=== PATIENT | female | born 1945 | race Caucasian/White ===

== ENCOUNTER 2017-01-04 12:25 | Inpatient (IN) | payer OTHER ==
--- NOTE | 2017-01-04 13:54 | PDOC ---
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 Rebeca Regalado for worsening SOB with exertion for the past 10 days. HISTORY OF PRESENT ILLNESS: The patient states she cannot walk without feeling short of breath, which is unusual for her. She also admits that when she bends over she is SOB and has upper abdominal pain. She denies orthopnea. She denies f/c, n/v/d, cough, runny nose, CP, back pain, lower extremity swelling. The patient has been on 2 rounds of steroids and abx over the past 2 weeks with no change in her SOB. She also had a EKG done by her tripe scraper which was normal. She also informs me that her bowel movements have become much thinner in nature over the past 2 weeks. When her symptoms started, she had just been started on Nadolol for her BP. PCP is Dr. Flores Regalado [employer] Mechanic is Dr. Aguilar. Vital signs on arrival are within normal limits. REVIEW OF SYSTEMS: GENERAL/CONSTITUTIONAL: No fever/chills. No weakness. No weight change. HEAD, EYES, EARS, NOSE AND THROAT: No change in vision. No ear pain or discharge. No sore throat. CARDIOVASCULAR: +SOB with exertion. No chest pain. RESPIRATORY: No cough, wheezing, or hemoptysis. GASTROINTESTINAL: See history of present illness. GENITOURINARY: No dysuria, frequency, or change in urination. MUSCULOSKELETAL: No joint or muscle swelling or pain. No neck or back pain. SKIN: No rash or easy bruising. NEUROLOGIC: No headache, vertigo, loss of consciousness, or loss of sensation. PHYSICAL EXAM: GENERAL: The patient is awake, alert, and fully oriented, in no acute distress. She can speak in full sentences while sitting. HEAD: Normal with no signs of trauma. ENT: Pupils equal, round and reactive to light, extraocular movements intact, sclera anicteric, conjunctiva clear. Neck supple. LUNGS: Clear to auscultation bilaterally. Normal excursion. No respiratory distress or use of accessory muscles. CV: RRR, S1/S2, no MRG. Cap refill < 2 sec. ABDOMEN: Soft, non-distended, non-tender even to deep palpation, no hepatomegaly or splenomegaly, no masses. EXTREMITIES: Normal range of motion. 1+ pitting edema in right LE. NEUROLOGICAL: Normal speech, normal gait. CN II-XII grossly intact. PSYCH: Normal mood, normal affect. SKIN: Warm, dry, normal turgor, no rashes or lesions noted. Past History - Past Medical History Allergies/Adverse Reactions: Allergies Allergy/AdvReac Type Severity Reaction Status Date / Time No Known Allergies Allergy Verified 01/04/17 12:27 Home Medications: Ambulatory Orders Aspirin [Baby Aspirin] 81 mg PO DAILY #0 tab.chew 03/16/12 Levothyroxine [Synthroid -] 88 mcg PO DAILY #0 tablet 03/16/12 Simvastatin [Zocor] 40 mg PO DAILY #0 tablet 03/16/12 Diltiazem Cd [Cardizem Cd -] 120 mg PO BID 09/23/15 Nadolol [Corgard -] 40 mg PO DAILY 01/04/17 Anemia: No Asthma: No Cancer: No Cardiac Disorders: Yes (cad) CVA: No COPD: Yes CHF: No Dementia: No Diabetes: No GI Disorders: Yes (sbo) Disorders: No HTN: Yes Hypercholesterolemia: Yes Liver Disease: No Seizures: No Thyroid Disease: No - Surgical History Abdominal Surgery: Yes (abd hernia repair) Appendectomy: Yes Cardiac Surgery: Yes (triple bypass) Cholecystectomy: Yes Lung Surgery: No Neurologic Surgery: No Orthopedic Surgery: No - Immunization History Immunization Up to Date: Yes - Psycho/Social/Smoking Cessation Hx Anxiety: No Suicidal Ideation: No Smoking Status: Yes Smoking History: Former smoker Have you smoked in the past 12 months: No Number of Cigarettes Smoked Daily: 0 If you are a former smoker, when did you quit?: [place] 1992 Cigars Per Day: 10 Information on smoking cessation initiated: No Hx Alcohol Use: No Drug/Substance Use Hx: No Substance Use Type: None Hx Substance Use Treatment: No *Physical Exam - Vital Signs Last Vital Signs Temp Pulse Resp BP Pulse Ox 97.4 F L 66 24 143/90 98 01/04/17 12:27 01/04/17 12:27 01/04/17 12:27 01/04/17 12:27 01/04/17 12:27 Heart Score/ECG Review - ECG Intrepretation Comment:: Twelve-lead EKG was performed and reviewed by me. There is normal sinus rhythm with a normal rate. The axis is normal. The intervals are normal. There are no ST or T wave abnormalities. Septal infarct, age undetermined. Impression: Abnormal twelve-lead EKG ED Treatment Course - LABORATORY CBC & Chemistry Diagram: 01/04/17 14:02 01/04/17 14:02 Medical Decision Making - Medical Decision Making A/P: 71 y/o afebrile female with worsened SOB on exertion over the past 10 days. Plan is as follows: 1. labs 2. EKG 3. Chest CT 4. abd/pelvis CT Labs unremarkable. EKG ok Chest CT IMPRESSION: Interval 5mm pulmonary nodule in the right lower lobe for which a follow up CT scan of the chest in 3-6 months is needed. Moderate to marked COPD /centrilobular emphysema changes again seen. abd/pelvis CT IMPRESSION: No CT evidence of an acute process in the abdomen and pelvis. Spoke with Dr. Regalado and she wants patient admitted for continuous IV steroids. Pt made aware of the plan. First dose of IV solumedrol ordered. Dr. Aguilar consulted. *DC/Admit/Observation/Transfer Diagnosis at time of Disposition: COPD exacerbation - Discharge Dispostion Admit: Yes - Referrals Referrals: Flores Regalado [Primary Care Provider] -
[2017-01-04 14:18] LABS: BASOPHIL 1.4 % (0-2.0); EOSINOPHIL 1.6 % (0-4.5); MCH 30.4 pg (25.7-33.7); MCHC 32.7 g/dl (32.0-36.0); MEAN PLT VOLUME 10.2 fl (7.5-11.1); NEUTROPHILS 48.5 % (42.8-82.8); PLATELET COUNT 254 K/MM3 (134-434); WHITE BLOOD COUNT 13.8 K/mm3 (4.0-10.0)
[2017-01-04 14:59] LABS: ALBUMIN 3.8 g/dl (3.4-5.0); ANION GAP 9 (8-16); BILIRUBIN,TOTAL 1.2 mg/dL (0.2-1.0); CALCIUM 9.7 mg/dL (8.5-10.1); CO2 30 mmol/L (21-32); CREATININE 0.9 mg/dL (0.55-1.02); GLUCOSE,RANDOM 191 mg/dL (74-106); SGOT/AST 15 U/L (15-37); SGPT/ALT 33 U/L (12-78); TOT PROT 6.9 g/dl (6.4-8.2)
[2017-01-04 15:02] LABS: ALK PHOS 88 U/L (45-117); TROPONIN I < 0.02 ng/ml (0.00-0.05)
--- NOTE | 2017-01-04 15:59 | EKG ---
Test Reason : Blood Pressure : / mmHG Vent. Rate : 060 BPM Atrial Rate : 060 BPM P-R Int : 184 ms QRS Dur : 076 ms QT Int : 454 ms P-R-T Axes : 011 022 054 degrees QTc Int : 454 ms NORMAL SINUS RHYTHM SEPTAL INFARCT (CITED ON OR BEFORE 19-JUN-2002) ABNORMAL ECG WHEN COMPARED WITH ECG OF 23-SEP-2015 18:12, VENT. RATE HAS DECREASED BY 33 BPM Confirmed by AMANDA GONZALEZ MD ([id number]) on 01/04/2017 3:59:20 PM Referred By: Confirmed By:AMANDA GONZALEZ MD
[2017-01-04] MEDS ORDERED: methylPREDNISolone NA SUCC 40 MG/1 ML VIAL IVPB ONE (18:05)
[2017-01-04] MEDS ORDERED: methylPREDNISolone NA SUCC 40 MG/1 ML VIAL ONE (18:19)
[2017-01-04 22:38] VITALS: BMI 30.7
[2017-01-04] MEDS ORDERED: ALBUTEROL SO4 0.083% IH SOL 2.5 MG/3 ML VIAL.NEB. NEB PRN (23:11)
[2017-01-04] MEDS: methylPREDNISolone NA SUCC 40 MG/1 ML VIAL IVPB SCH (23:40)
[2017-01-05] MEDS: methylPREDNISolone NA SUCC 40 MG/1 ML VIAL IVPB SCH ×4 (02:46→21:45)
[2017-01-05] MEDS: LEVOTHYROXINE NA 88 MCG TABLET (FP) PO SCH (06:09)
[2017-01-05] MEDS: INSULIN SLIDING SCALE (NOVOLOG) 1 VIAL SQ SCH ×4 (06:09→21:51)
[2017-01-05] MEDS ORDERED: PT OWN MED DRAWER 7, Y5N ONE (09:07)
[2017-01-05 09:42] LABS: BASOPHIL 0.2 % (0-2.0); MCH 30.5 pg (25.7-33.7); MCHC 33.2 g/dl (32.0-36.0); NEUTROPHILS 78.1 % (42.8-82.8); PLATELET COUNT 280 K/MM3 (134-434); RDW 14.2 % (11.6-15.6); WHITE BLOOD COUNT 14.7 K/mm3 (4.0-10.0)
[2017-01-05] MEDS: ASPIRIN 81 MG CHEWABLE TABLETS PO SCH (09:45)
[2017-01-05] MEDS: PANTOPRAZOLE 20 MG TABLET (FP) PO SCH (09:45)
[2017-01-05] MEDS: HEPARIN NA (PORCINE) 5,000 UNITS/ML 1ML VIAL SQ SCH ×2 (09:46→21:32)
[2017-01-05] MEDS ORDERED: NADOLOL 40 MG TABLET (FP) PO SCH (10:00)
[2017-01-05 10:05] LABS: ALBUMIN 3.8 g/dl (3.4-5.0); CALCIUM 9.7 mg/dL (8.5-10.1)
[2017-01-05 10:07] LABS: BILIRUBIN,TOTAL 1.3 mg/dL (0.2-1.0)
[2017-01-05] MEDS ORDERED: INSULIN (NOVOLOG) ASPART 100 UNITS/ML 10ML VIAL ONE (11:17)
--- NOTE | 2017-01-05 13:20 | HP ---
Admitting History and Physical - Primary Care Physician PCP: Flores Regalado S - Admission Chief Complaint: SOB/[place] History of Present Illness: CHIEF COMPLAINT: 71 y/o afebrile female with PMH HTN, HLD, hypothyroidism, ACS with CABG in 1992, Whipple surgery for pseudocyst with splenectomy/parital pancreatectomy, COPD sent to ER for worsening SOB with exertion for the past 10 days. HISTORY OF PRESENT ILLNESS: The patient states she cannot walk without feeling short of breath, which is unusual for her. She also admits that when she bends over she is SOB and has upper abdominal pain. She denies orthopnea. She denies f/c, n/v/d, cough, runny nose, CP, back pain, lower extremity swelling. The patient has been on 2 rounds of steroids and abx over the past 2 weeks with no change in her SOB. She also had a EKG done by her buttermilk drier operator which was normal. She also informs me that her bowel movements have become much thinner in nature over the past 2 weeks. When her symptoms started, she had just been started on Nadolol for her BP. History Source: Patient Limitations to Obtaining History: No Limitations - Past Medical History Cardiovascular: Yes: CAD, HTN, Hyperlipdemia, [place] Pulmonary: Yes: COPD Infectious Disease: Yes: Herpes Zoster Musculoskeletal: Yes: Osteoarthritis Endocrine: Yes: Hypothyroidism - Past Surgical History Past Surgical History: Yes: CABG - Smoking History Smoking history: Former smoker Have you smoked in the past 12 months: No Aproximately how many cigarettes per day: 0 If you are a former smoker, when did you quit?: [place] 1992 - Alcohol/Substance Use Hx Alcohol Use: No History of Substance Use: reports: None - Social History Usual Living Arrangement: Yes: Alone ADL: Independent History of Recent Travel: No Home Medications - Allergies Allergies/Adverse Reactions: Allergies Allergy/AdvReac Type Severity Reaction Status Date / Time No Known Allergies Allergy Verified 01/04/17 12:27 - Home Medications Home Medications: Ambulatory Orders Aspirin [Baby Aspirin] 81 mg PO DAILY #0 tab.chew 03/16/12 Levothyroxine [Synthroid -] 88 mcg PO DAILY #0 tablet 03/16/12 Simvastatin [Zocor] 40 mg PO DAILY #0 tablet 03/16/12 Diltiazem Cd [Cardizem Cd -] 120 mg PO BID 09/23/15 Nadolol [Corgard -] 40 mg PO DAILY 01/04/17 Family Disease History - Family Disease History Family History: Unremarkable Review of Systems - Review of Systems Constitutional: denies: Chills, Fever, Lethargy Eyes: denies: Blind Spots, Double Vision HENT: denies: Difficult Swallowing, Ear Pain Neck: denies: Stiffness, Tenderness Cardiovascular: reports: Shortness of Breath. denies: Chest Pain, Palpitations Respiratory: reports: Cough (mild dry), SOB, SOB on Exertion, Wheezing. denies : Orthopnea, PND Gastrointestinal: reports: Abdominal Pain (upper abdomen from using accesory respiratory muscles). denies: Bloating, Constipation, Diarrhea, Vomiting Genitourinary: denies: Burning, Dysuria, Flank Pain Musculoskeletal: denies: Back Pain, Joint Pain Integumentary: denies: Eczema, Rash Neurological: denies: Change in LOC, Change in Speech, Confusion, Seizure, Syncope Endocrine: denies: Unexplained Weight Gain, Unexplained Weight Loss Hematology/Lymphatic: denies: Easily Bruised, Excessive Bleeding Psychiatric: denies: Altered Sleep Pattern, Anxiety, Depression Physical Examination Vital Signs: Vital Signs Temperature 98 F 01/05/17 09:00 Pulse Rate 69 01/05/17 09:00 Respiratory Rate 16 01/05/17 09:00 Blood Pressure 150/98 01/05/17 09:00 O2 Sat by Pulse Oximetry (%) 95 01/05/17 09:45 Constitutional: Yes: No Distress, Calm Eyes: Yes: Conjunctiva Clear HENT: Yes: Atraumatic Neck: Yes: Supple Cardiovascular: Yes: Regular Rate and Rhythm Respiratory: Yes: Wheezes (bilateral expiratory) Gastrointestinal: Yes: Soft. No: Distention, Tenderness Renal/: No: CVA Tenderness - Left, CVA Tenderness - Right, Hematuria Musculoskeletal: No: Joint Stiffness, Joint Swelling Extremities: No: Cold, Cool Edema: No Peripheral Pulses WNL: Yes Integumentary: No: Pressure Ulcer, Venous Stasis Changes Neurological: Yes: WNL, Alert, Oriented ...Motor Strength: WNL Psychiatric: Yes: WNL, Alert, Oriented. No: Agitated, Suicidal Ideation Labs: CBC, BMP 01/05/17 08:20 01/05/17 08:20 Imaging - Results Chest X-ray: Report Reviewed Other: Report Reviewed Assessment/Plan CHIEF COMPLAINT: 71 y/o afebrile female with PMH HTN, HLD, hypothyroidism, ACS with CABG in 1992, Whipple surgery for pseudocyst with splenectomy/parital pancreatectomy, COPD sent for worsening SOB with exertion for the past 10 days. COPD exacerbation CAP CT noted IV steroids, nebs cardiology and pulmonary evals falls PFX gastric PFX DVT pfx GLU control while on steroids d/w pt and staff
--- NOTE | 2017-01-05 15:07 | CON.PULM ---
Consult Consult Specialty:: PULMONARY Referred by:: LITA Reason for Consultation:: SOB - History of Present Illness Chief Complaint: SOB History of Present Illness: 71 y/o afebrile female with PMH HTN, HLD, hypothyroidism, ACS with CABG in 1992 , Whipple surgery for pseudocyst with splenectomy/parital pancreatectomy, COPD sent in by Dr. Rebeca Regalado for worsening SOB with exertion for the past 10 days. The patient states she cannot walk without feeling short of breath, which is unusual for her. She also admits that when she bends over she is SOB and has upper abdominal pain. She denies orthopnea. She denies f/c, n/v/d, cough, runny nose, CP, back pain, lower extremity swelling. The patient has been on 2 rounds of steroids and abx over the past 2 weeks with no change in her SOB. She also had a EKG done by her dye maker which was normal. She also informs me that her bowel movements have become much thinner in nature over the past 2 weeks. When her symptoms started, she had just been started on Nadolol for her BP. - History Source History Provided By: Patient, Medical Record Limitations to Obtaining History: No Limitations - Past Medical History MASTER CHEF: No: Alzheimer's Cardio/Vascular: Yes: CAD, HTN, Hyperlipdemia, [place] Pulmonary: Yes: COPD Gastrointestinal: No: Ascites Hepatobiliary: No: Cirrhosis Renal/: No: Renal Failure Infectious Disease: Yes: Herpes Zoster Musculoskeletal: Yes: Osteoarthritis Endocrine: Yes: Hypothyroidism - Past Surgical History Past Surgical History: Yes: CABG - Alcohol/Substance Use Hx Alcohol Use: No History of Substance Use: reports: None - Smoking History Smoking history: Former smoker Have you smoked in the past 12 months: No Aproximately how many cigarettes per day: 0 If you are a former smoker, when did you quit?: [place] 1992 - Social History ADL: Independent Place of : [facility] History of Recent Travel: No Home Medications - Allergies Allergies/Adverse Reactions: Allergies Allergy/AdvReac Type Severity Reaction Status Date / Time No Known Allergies Allergy Verified 01/04/17 12:27 - Home Medications Home Medications: Ambulatory Orders Aspirin [Baby Aspirin] 81 mg PO DAILY #0 tab.chew 03/16/12 Levothyroxine [Synthroid -] 88 mcg PO DAILY #0 tablet 03/16/12 Simvastatin [Zocor] 40 mg PO DAILY #0 tablet 03/16/12 Diltiazem Cd [Cardizem Cd -] 120 mg PO BID 09/23/15 Nadolol [Corgard -] 40 mg PO DAILY 01/04/17 Family Disease History - Family Disease History Family History: Unremarkable Review of Systems - Review of Systems Constitutional: denies: Chills, Fever Eyes: denies: Blind Spots HENT: denies: Difficult Swallowing Neck: denies: Decreased ROM Cardiovascular: denies: Chest Pain Respiratory: reports: Cough, Exercise Intolerance, SOB, SOB on Exertion, Wheezing. denies: Hemoptysis Gastrointestinal: denies: Abdominal Pain Genitourinary: denies: Burning Physical Exam Vital Sings: Vital Signs Temperature 97.5 F L 01/05/17 14:04 Pulse Rate 76 01/05/17 14:04 Respiratory Rate 16 01/05/17 14:04 Blood Pressure 135/74 01/05/17 14:04 O2 Sat by Pulse Oximetry (%) 95 01/05/17 09:45 Constitutional: Yes: Calm Eyes: Yes: EOM Intact HENT: Yes: Normocephalic Neck: Yes: Trachea Midline Cardiovascular: Yes: Regular Rate and Rhythm, S1, S2 Respiratory: Yes: Diminished Gastrointestinal: Yes: Normal Bowel Sounds, Abdomen, Obese Edema: No Integumentary: Yes: WNL Neurological: Yes: WNL Labs: CBC, BMP 01/05/17 08:20 01/05/17 08:20 REST REVIEWED Imaging - Results Chest X-ray: Image Reviewed Cat Scan: Image Reviewed EKG: Report Reviewed Problem List - Problems (1) COPD exacerbation Code(s): J44.1 - CHRONIC OBSTRUCTIVE PULMONARY DISEASE W (ACUTE) EXACERBATION (2) Coronary artery disease Code(s): I25.10 - ATHSCL HEART DISEASE OF [place] CORONARY ARTERY W/O ANG PCTRS Qualifiers: Coronary Disease-Associated Artery/Lesion type: [place] artery [place] vs. transplanted heart: [place] heart Associated angina: without angina Qualified Code(s): I25.10 - Atherosclerotic heart disease of [place] coronary artery without angina pectoris (3) Head trauma Code(s): S09.90XA - UNSPECIFIED INJURY OF HEAD, INITIAL ENCOUNTER Assessment/Plan A/E COPD/NO CT EVIDENCE TO SUPPORT CABP R/O CARDIAC COMPONENT MULTIPLE MEDICAL PROBLEMS LISTED FEV1: 1.94 DLCO73% PREDICTED SIGNIFICANT COPD ON CT CHEST BRONCHODILATORS/O2 SUPPLEMENTATION NEEDED PULMONARY REHAB AN OUTPATIENT OBSERVING OFF SYSTEMIC STEROIDS/ANTIBIOTICS WOULD REQUEST CARDIO CONSULT TO ADDRESS CORONARY ARTERY DISEASE STATUS Jaydon ADAMES MD
--- NOTE | 2017-01-05 16:48 | CON.CARD ---
Consult Consult Specialty:: Cardiology Referred by:: Flores Regalado MD Reason for Consultation:: CAD s/p [place], CABG - History of Present Illness Chief Complaint: Dyspnea History of Present Illness: 71 year old female with h/o CAD s/p [place], CABG, angina pectoris, COPD, HTN/HCVD, hyperlipidemia, aortic regurgitation, mitral regurgitation, hypothyroidism, Whipple surgery for pseudocyst with splenectomy/parital pancreatectomy presented for worsening SOB with exertion for the past 10 days. She also admits that when she bends over she is SOB, denies chest pain, palpitations, near or true syncope, palpitations, orthopnea, PND or LE edema. [place] has since improved. 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 Cardio/Vascular: Yes: CAD, HTN, Hyperlipdemia, [place] Pulmonary: Yes: COPD Gastrointestinal: No: Ascites Hepatobiliary: No: Cirrhosis Renal/: No: Renal Failure Infectious Disease: Yes: Herpes Zoster Musculoskeletal: Yes: Osteoarthritis Endocrine: Yes: Hypothyroidism - Past Surgical History Past Surgical History: Yes: CABG - Alcohol/Substance Use Hx Alcohol Use: No History of Substance Use: reports: None - Smoking History Smoking history: Former smoker Have you smoked in the past 12 months: No Aproximately how many cigarettes per day: 0 If you are a former smoker, when did you quit?: [place] 1992 - Social History ADL: Independent History of Recent Travel: No Home Medications - Allergies Allergies/Adverse Reactions: Allergies Allergy/AdvReac Type Severity Reaction Status Date / Time No Known Allergies Allergy Verified 01/04/17 12:27 - Home Medications Home Medications: Ambulatory Orders Aspirin [Baby Aspirin] 81 mg PO DAILY #0 tab.chew 03/16/12 Levothyroxine [Synthroid -] 88 mcg PO DAILY #0 tablet 03/16/12 Simvastatin [Zocor] 40 mg PO DAILY #0 tablet 03/16/12 Diltiazem Cd [Cardizem Cd -] 120 mg PO BID 09/23/15 Nadolol [Corgard -] 40 mg PO DAILY 01/04/17 Review of Systems - Review of Systems Respiratory: reports: SOB on Exertion Vital Signs: Vital Signs Temperature 97.5 F L 01/05/17 14:04 Pulse Rate 76 01/05/17 14:04 Respiratory Rate 16 01/05/17 14:04 Blood Pressure 135/74 01/05/17 14:04 O2 Sat by Pulse Oximetry (%) 95 01/05/17 09:45 Constitutional: Yes: No Distress, Calm Neck: Yes: Supple Respiratory: Yes: Regular, Diminished Gastrointestinal: Yes: Normal Bowel Sounds, Soft Cardiovascular: Yes: Regular Rate and Rhythm JVD: No Carotid Bruit: No Heart Sounds: Yes: S1, S2 Murmur: Yes: Systolic Murmur, Grade 1 Edema: No - Other Data Labs, Other Data: CBC, BMP 01/05/17 08:20 01/05/17 08:20 NSR septal infarct Ejection Fraction %: LVEF > or = 40 % Imaging - Results Cat Scan: Report Reviewed (Mod-marked centrilobular emphysema) Problem List - Problems (1) COPD exacerbation Code(s): J44.1 - CHRONIC OBSTRUCTIVE PULMONARY DISEASE W (ACUTE) EXACERBATION (2) Coronary artery disease Code(s): I25.10 - ATHSCL HEART DISEASE OF [place] CORONARY ARTERY W/O ANG PCTRS Qualifiers: Coronary Disease-Associated Artery/Lesion type: [place] artery [place] vs. transplanted heart: [place] heart Associated angina: without angina Qualified Code(s): I25.10 - Atherosclerotic heart disease of [place] coronary artery without angina pectoris (3) H/O myocardial infarction, greater than 8 weeks Code(s): I25.2 - OLD MYOCARDIAL INFARCTION (4) Hyperlipidemia Code(s): E78.5 - HYPERLIPIDEMIA, UNSPECIFIED Qualifiers: Hyperlipidemia type: pure hypercholesterolemia Qualified Code(s): E78.0 - Pure hypercholesterolemia (5) Hypertension Code(s): I10 - ESSENTIAL (PRIMARY) HYPERTENSION Qualifiers: Hypertension type: essential hypertension Qualified Code(s): I10 - Essential (primary) hypertension (6) Hypothyroidism Code(s): E03.9 - HYPOTHYROIDISM, UNSPECIFIED Qualifiers: Hypothyroidism type: unspecified Qualified Code(s): E03.9 - Hypothyroidism, unspecified (7) Status post coronary artery bypass graft Code(s): Z95.1 - PRESENCE OF AORTOCORONARY BYPASS GRAFT Assessment/Plan 1. AE COPD resolving 2. CAD s/p [place], CABG, angina pectoris 3. Hypothyroidism 4. Hyperlipidemia 5. HTN/HCVD P:1. BD, O2 to maintain saO2, check TSH, lipid panel 2. Continue ASA 81 qd, Cardizem CD 120 bid, Zocor 20 qhs, d/c Nadolol, resume Aceon 8 qd as outpatient 3. Further CV evaluation including echo and stress testing once COPD flare subsides, may be performed as outpatient 4. Thank you for consultative opportunity
[2017-01-05] MEDS: metFORMIN HCL 500 MG TABLET (FP) PO SCH (17:46)
[2017-01-05] MEDS: ATORVASTATIN CA 20 MG TABLET (FP) PO SCH (21:32)
[2017-01-06] MEDS: methylPREDNISolone NA SUCC 40 MG/1 ML VIAL IVPB SCH (02:23)
[2017-01-06] MEDS: LEVOTHYROXINE NA 88 MCG TABLET (FP) PO SCH (06:05)
[2017-01-06] MEDS: INSULIN SLIDING SCALE (NOVOLOG) 1 VIAL SQ SCH ×5 (06:05→22:10)
[2017-01-06] MEDS: metFORMIN HCL 500 MG TABLET (FP) PO SCH ×2 (06:05→16:36)
[2017-01-06 07:39] LABS: MCH 30.6 pg (25.7-33.7); MEAN CELL VOLUME 92.9 fl (80-96); MEAN PLT VOLUME 10.4 fl (7.5-11.1); PLATELET COUNT 247 K/MM3 (134-434); RDW 14.1 % (11.6-15.6); WHITE BLOOD COUNT 26.6 K/mm3 (4.0-10.0)
[2017-01-06 08:24] LABS: CHOLESTEROL 199 mg/dL (50-200); LDL CHOLESTEROL (ONLY SJRH) 118 mg/dL (5-100)
[2017-01-06 08:33] LABS: CALCIUM 9.5 mg/dL (8.5-10.1); CREATININE 0.9 mg/dL (0.55-1.02); THYROID STIMULATING HORMONE 0.48 uIU/ml (0.358-3.74)
[2017-01-06] MEDS ORDERED: PT OWN MED DRAWER 7, Y5N ONE (09:59)
[2017-01-06] MEDS ORDERED: methylPREDNISolone NA SUCC 40 MG/1 ML VIAL IVPB SCH (10:00)
[2017-01-06] MEDS: PANTOPRAZOLE 20 MG TABLET (FP) PO SCH (10:01)
[2017-01-06] MEDS: ASPIRIN 81 MG CHEWABLE TABLETS PO SCH (10:01)
[2017-01-06] MEDS: HEPARIN NA (PORCINE) 5,000 UNITS/ML 1ML VIAL SQ SCH ×2 (10:02→22:10)
[2017-01-06 10:54] LABS: PLATELET COMMENT2 NO CLOTTING DETECTED; PLATELET ESTIMATE ADEQUATE (NORMAL)
--- NOTE | 2017-01-06 11:12 | PN ---
Progress Note, Physician Chief Complaint: OOB to chair walks in the hallway, less SOB no CO; has postnasal drip d/w dr Avendano, will decide if echo and stress test to be done inH or outpt d/w pt high GLU 300' and HgA1c 8% c/w diagnosis of diabetes, she was aware of high GLU in the past and was nonc/w diet; we discussed diabetes treatment, she said she would prefer not to take any meds outpt but to be on diet and f/u labs ; agreed to insulin and metformin while in H for now - Current Medication List Current Medications: Active Medications Albuterol Sulfate (Ventolin 0.083% Nebulizer Soln -) 1 amp NEB Q4H PRN PRN Reason: SHORT OF BREATH/WHEEZING Aspirin (Asa -) 81 mg PO DAILY [facility] Last Admin: 01/06/17 10:01 Dose: 81 mg Atorvastatin Calcium (Lipitor -) 20 mg PO HS [facility] Last Admin: 01/05/17 21:32 Dose: 20 mg Diltiazem HCl (Cardizem Cd -) 120 mg PO BID [facility] Last Admin: 01/06/17 10:01 Dose: 120 mg Heparin Sodium (Porcine) (Heparin -) 5,000 unit SQ BID [facility] Last Admin: 01/06/17 10:02 Dose: 5,000 unit Insulin Aspart (Novolog Vial Sliding Scale -) 1 vial SQ ACHS QING PRN Reason: Protocol Last Admin: 01/06/17 09:10 Dose: 8 units Levothyroxine Sodium (Synthroid -) 88 mcg PO DAILY@0700 [facility] Last Admin: 01/06/17 06:05 Dose: 88 mcg Loratadine (Claritin -) 10 mg PO DAILY [facility] Metformin HCl (Glucophage -) 500 mg PO BID@0700,1630 [facility] Last Admin: 01/06/17 06:05 Dose: 500 mg Methylprednisolone Sodium Succinate (Solu-Medrol -) 40 mg IVPB Q8H-IV [facility] Last Admin: 01/06/17 10:02 Dose: 40 mg Pantoprazole Sodium (Protonix -) 20 mg PO DAILY [facility] Last Admin: 01/06/17 10:01 Dose: 20 mg Sodium Chloride ([place] -) 2 spray NS BID PRN PRN Reason: NASAL CONGESTION - Objective Vital Signs: Vital Signs Temperature 97.3 F L 01/06/17 08:15 Pulse Rate 64 02/18/17 08:15 Respiratory Rate 18 01/06/17 08:15 Blood Pressure 139/74 01/06/17 08:15 O2 Sat by Pulse Oximetry (%) 93 L 01/05/17 21:00 Constitutional: Yes: No Distress, Calm Eyes: Yes: Conjunctiva Clear HENT: Yes: Atraumatic Neck: Yes: Supple Cardiovascular: Yes: Regular Rate and Rhythm Respiratory: Yes: CTA Bilaterally Gastrointestinal: Yes: Soft. No: Distention, Tenderness Genitourinary: No: CVA Tenderness - Left, CVA Tenderness - Right Musculoskeletal: No: Joint Stiffness, Joint Swelling Extremities: No: Cold, Cool Edema: No Peripheral Pulses WNL: Yes Integumentary: No: Pressure Ulcer, Venous Stasis Changes Neurological: Yes: WNL, Alert, Oriented ...Motor Strength: WNL Psychiatric: Yes: WNL, Alert, Oriented. 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 COPD exacerbation taper IV steroids, nebs cardiology and pulmonary f/u echo & stress test per cardio check O2 sat/RA pre & post falls PFX, gastric PFX, DVT pfx GLU control while on steroids, f/u CBC and GLU d/w pt and staff
[2017-01-06] MEDS: LORATADINE 10 MG TABLET PO SCH (11:18)
[2017-01-06] MEDS ORDERED: SODIUM CHLORIDE NASAL SPRAY 44 ML BOTTLE NS PRN (12:00)
--- NOTE | 2017-01-06 13:07 | PN ---
Progress Note (short form) - Note Progress Note: PULMONARY VSS/AFEBRILE SYABLE WANTS TO LEAVE ANICTERIC CHEST DISTANT BUT CLEAR S1S2 BS+ NO EDEMA LABS/MEDS/IMAGING REVIEWED A/E COPD RESOLVED ECHO AN OUTPATIENT MEDROL CHANGED TO ORAL PREDNISONE NO OBJECTION TO DISCHARGE TODAY Jaydon DAAMES MD Problem List - Problems (1) COPD exacerbation Code(s): J44.1 - CHRONIC OBSTRUCTIVE PULMONARY DISEASE W (ACUTE) EXACERBATION (2) Coronary artery disease Code(s): I25.10 - ATHSCL HEART DISEASE OF [place] CORONARY ARTERY W/O ANG PCTRS Qualifiers: Coronary Disease-Associated Artery/Lesion type: [place] artery [place] vs. transplanted heart: [place] heart Associated angina: without angina Qualified Code(s): I25.10 - Atherosclerotic heart disease of [place] coronary artery without angina pectoris (3) Head trauma Code(s): S09.90XA - UNSPECIFIED INJURY OF HEAD, INITIAL ENCOUNTER
[2017-01-06] MEDS: predniSONE 20 MG TABLET (UD) PO SCH (13:19)
--- NOTE | 2017-01-06 14:19 | PN ---
Progress Note, Physician Chief Complaint: Events noted Intermittent dyspnea, but overall improved History of Present Illness: Patient was seen and examined. Awake and alert. Chart was reviewed Sitting in [place]. Appears better. No wheezes Denies chest pain or palpitations Less shortness of breath - Current Medication List Current Medications: Active Medications Albuterol Sulfate (Ventolin 0.083% Nebulizer Soln -) 1 amp NEB Q4H PRN PRN Reason: SHORT OF BREATH/WHEEZING Aspirin (Asa -) 81 mg PO DAILY [facility] Last Admin: 01/06/17 10:01 Dose: 81 mg Atorvastatin Calcium (Lipitor -) 20 mg PO HS [facility] Last Admin: 01/05/17 21:32 Dose: 20 mg Diltiazem HCl (Cardizem Cd -) 120 mg PO BID [facility] Last Admin: 01/06/17 10:01 Dose: 120 mg Heparin Sodium (Porcine) (Heparin -) 5,000 unit SQ BID [facility] Last Admin: 01/06/17 10:02 Dose: 5,000 unit Insulin Aspart (Novolog Vial Sliding Scale -) 1 vial SQ ACHS [facility] PRN Reason: Protocol Last Admin: 01/06/17 11:13 Dose: 4 units Levothyroxine Sodium (Synthroid -) 88 mcg PO DAILY@0700 [facility] Last Admin: 01/06/17 06:05 Dose: 88 mcg Loratadine (Claritin -) 10 mg PO DAILY [facility] Last Admin: 01/06/17 11:18 Dose: 10 mg Metformin HCl (Glucophage -) 500 mg PO BID@0700,1630 [facility] Last Admin: 01/06/17 06:05 Dose: 500 mg Pantoprazole Sodium (Protonix -) 20 mg PO DAILY [facility] Last Admin: 01/06/17 10:01 Dose: 20 mg Prednisone (Deltasone -) 20 mg PO DAILY [facility] Last Admin: 01/06/17 13:19 Dose: 20 mg Sodium Chloride ([place] Nasal [place] -) 2 spray NS BID PRN PRN Reason: NASAL CONGESTION - Objective Vital Signs: Vital Signs Temperature 97.3 F L 01/06/17 08:15 Pulse Rate 64 01/06/17 08:15 Respiratory Rate 18 01/06/17 08:15 Blood Pressure 139/74 01/06/17 08:15 O2 Sat by Pulse Oximetry (%) 93 L 01/05/17 21:00 Cardiovascular: Yes: Regular Rate and Rhythm, Murmur (Soft SM), S1, S2 Respiratory: Yes: Diminished. No: Wheezes Gastrointestinal: Yes: Normal Bowel Sounds, Soft. No: Tenderness Edema: No Additional Findings/Remarks: - Review of Systems Constitutional: denies: Chills, Fever Cardiovascular: reports: Shortness of Breath. denies: Chest Pain, Palpitations Respiratory: (+) Cough, denies: Hemoptysis, PND, Wheezing Gastrointestinal: denies: Abdominal Pain, Constipation, Diarrhea, Melena, Nausea , Rectal Bleeding, Vomiting Genitourinary: denies: Dysuria Musculoskeletal: denies: Joint Pain Neurological: denies: Dizziness, Headache, Seizure, Syncope Labs: CBC, BMP 01/06/17 06:00 01/06/17 06:00 Problem List - Problems (1) COPD exacerbation Code(s): J44.1 - CHRONIC OBSTRUCTIVE PULMONARY DISEASE W (ACUTE) EXACERBATION (2) Coronary artery disease Code(s): I25.10 - ATHSCL HEART DISEASE OF [place] CORONARY ARTERY W/O ANG PCTRS Qualifiers: Coronary Disease-Associated Artery/Lesion type: [place] artery [place] vs. transplanted heart: [place] heart Associated angina: without angina Qualified Code(s): I25.10 - Atherosclerotic heart disease of [place] coronary artery without angina pectoris (3) Hyperlipidemia Code(s): E78.5 - HYPERLIPIDEMIA, UNSPECIFIED Qualifiers: Hyperlipidemia type: pure hypercholesterolemia Qualified Code(s): E78.0 - Pure hypercholesterolemia (4) Hypertension Code(s): I10 - ESSENTIAL (PRIMARY) HYPERTENSION Qualifiers: Hypertension type: essential hypertension Qualified Code(s): I10 - Essential (primary) hypertension (5) Hypothyroidism Code(s): E03.9 - HYPOTHYROIDISM, UNSPECIFIED Qualifiers: Hypothyroidism type: unspecified Qualified Code(s): E03.9 - Hypothyroidism, unspecified (6) Status post coronary artery bypass graft Code(s): Z95.1 - PRESENCE OF AORTOCORONARY BYPASS GRAFT Assessment/Plan 1. Acute exacerbation of COPD with intermittent dyspnea 2. CAD s/p [place], CABG, angina pectoris 3. Hypothyroidism 4. Hyperlipidemia 5. HTN/HCVD PLAN: 1. Bronchodilator and O2 to maintain saO2 2. Continue ASA 81 mg QD, Cardizem CD 120 mg BID, Lipitor 20 mg QHS 3. Further CV evaluation including echocardiography and stress testing once COPD exacerbation improves. Consider Echocardiography on Sunday inpatient and if unremarkable and clinically improved, nuclear myocardial perfusion imaging can be done as outpatient. Further plans are to follow Jon Avendano MD
[2017-01-06] MEDS: ATORVASTATIN CA 20 MG TABLET (FP) PO SCH (22:10)
[2017-01-07] MEDS: LEVOTHYROXINE NA 88 MCG TABLET (FP) PO SCH (06:16)
[2017-01-07] MEDS: metFORMIN HCL 500 MG TABLET (FP) PO SCH ×2 (06:16→16:59)
[2017-01-07] MEDS: INSULIN SLIDING SCALE (NOVOLOG) 1 VIAL SQ SCH ×4 (06:17→22:34)
[2017-01-07 08:36] LABS: BASOPHIL 0.1 % (0-2.0); MCH 30.9 pg (25.7-33.7); MCHC 33.5 g/dl (32.0-36.0); MEAN CELL VOLUME 92.3 fl (80-96); MEAN PLT VOLUME 10.3 fl (7.5-11.1); NEUTROPHILS 80.9 % (42.8-82.8); PLATELET COUNT 239 K/MM3 (134-434); RDW 14.3 % (11.6-15.6); WHITE BLOOD COUNT 24.6 K/mm3 (4.0-10.0)
[2017-01-07 08:47] LABS: CALCIUM 9.3 mg/dL (8.5-10.1); CREATININE 0.8 mg/dL (0.55-1.02)
[2017-01-07] MEDS ORDERED: PT OWN MED DRAWER 7, Y5N ONE (09:14)
[2017-01-07] MEDS: ASPIRIN 81 MG CHEWABLE TABLETS PO SCH (09:16)
[2017-01-07] MEDS: HEPARIN NA (PORCINE) 5,000 UNITS/ML 1ML VIAL SQ SCH ×2 (09:17→22:33)
[2017-01-07] MEDS: LORATADINE 10 MG TABLET PO SCH (09:17)
[2017-01-07] MEDS: PANTOPRAZOLE 20 MG TABLET (FP) PO SCH (09:17)
[2017-01-07] MEDS: predniSONE 20 MG TABLET (UD) PO SCH (09:17)
--- NOTE | 2017-01-07 10:34 | PN ---
Progress Note, Physician Chief Complaint: Events noted Had epigastric discomfort, but appears to be anxiety related and probable reflux History of Present Illness: Patient was seen and examined. Awake and alert. Chart was reviewed Sitting in [place]. No wheezes. Appears anxious Denies chest pain or palpitations Denies shortness of breath - Current Medication List Current Medications: Active Medications Albuterol Sulfate (Ventolin 0.083% Nebulizer Soln -) 1 amp NEB Q4H PRN PRN Reason: SHORT OF BREATH/WHEEZING Aspirin (Asa -) 81 mg PO DAILY [facility] Last Admin: 01/07/17 09:16 Dose: 81 mg Atorvastatin Calcium (Lipitor -) 20 mg PO HS [facility] Last Admin: 01/06/17 22:10 Dose: 20 mg Diltiazem HCl (Cardizem Cd -) 120 mg PO BID [facility] Last Admin: 01/07/17 09:16 Dose: 120 mg Heparin Sodium (Porcine) (Heparin -) 5,000 unit SQ BID [facility] Last Admin: 01/07/17 09:17 Dose: 5,000 unit Insulin Aspart (Novolog Vial Sliding Scale -) 1 vial SQ ACHS [facility] PRN Reason: Protocol Last Admin: 01/07/17 06:17 Dose: 4 units Levothyroxine Sodium (Synthroid -) 88 mcg PO DAILY@0700 [facility] Last Admin: 01/07/17 06:16 Dose: 88 mcg Loratadine (Claritin -) 10 mg PO DAILY [facility] Last Admin: 01/07/17 09:17 Dose: 10 mg Metformin HCl (Glucophage -) 500 mg PO BID@0700,1630 [facility] Last Admin: 01/07/17 06:16 Dose: 500 mg Pantoprazole Sodium (Protonix -) 20 mg PO DAILY [facility] Last Admin: 01/07/17 09:17 Dose: 20 mg Prednisone (Deltasone -) 20 mg PO DAILY [facility] Last Admin: 01/07/17 09:17 Dose: 20 mg Sodium Chloride ([place] Nasal [place] -) 2 spray NS BID PRN PRN Reason: NASAL CONGESTION - Objective Vital Signs: Vital Signs Temperature 97.0 F L 01/07/17 06:00 Pulse Rate 63 01/07/17 06:00 Respiratory Rate 20 01/07/17 06:00 Blood Pressure 130/78 01/07/17 06:00 O2 Sat by Pulse Oximetry (%) 94 L 01/06/17 21:00 Neck: Yes: Supple Cardiovascular: Yes: Regular Rate and Rhythm, S1, S2 Respiratory: Yes: CTA Bilaterally Gastrointestinal: Yes: Normal Bowel Sounds, Soft. No: Tenderness Edema: No Labs: CBC, BMP 01/07/17 07:40 01/07/17 07:05 Problem List - Problems (1) COPD exacerbation Code(s): J44.1 - CHRONIC OBSTRUCTIVE PULMONARY DISEASE W (ACUTE) EXACERBATION (2) Coronary artery disease Code(s): I25.10 - ATHSCL HEART DISEASE OF [place] CORONARY ARTERY W/O ANG PCTRS Qualifiers: Coronary Disease-Associated Artery/Lesion type: [place] artery [place] vs. transplanted heart: [place] heart Associated angina: without angina Qualified Code(s): I25.10 - Atherosclerotic heart disease of [place] coronary artery without angina pectoris (3) Hyperlipidemia Code(s): E78.5 - HYPERLIPIDEMIA, UNSPECIFIED Qualifiers: Hyperlipidemia type: pure hypercholesterolemia Qualified Code(s): E78.0 - Pure hypercholesterolemia (4) Hypertension Code(s): I10 - ESSENTIAL (PRIMARY) HYPERTENSION Qualifiers: Hypertension type: essential hypertension Qualified Code(s): I10 - Essential (primary) hypertension (5) Hypothyroidism Code(s): E03.9 - HYPOTHYROIDISM, UNSPECIFIED Qualifiers: Hypothyroidism type: unspecified Qualified Code(s): E03.9 - Hypothyroidism, unspecified (6) Status post coronary artery bypass graft Code(s): Z95.1 - PRESENCE OF AORTOCORONARY BYPASS GRAFT Assessment/Plan 1. Acute exacerbation of COPD with intermittent dyspnea - improved 2. CAD s/p [place], CABG, angina pectoris 3. Hypothyroidism 4. Hyperlipidemia 5. HTN/HCVD PLAN: 1. Bronchodilator and O2 as needed 2. Continue ASA 81 mg QD, Cardizem CD 120 mg BID, Lipitor 20 mg QHS 3. Further CV evaluation including echocardiography and stress testing once COPD exacerbation improves and can be done as outpatient. Discharge planning as per PMD Further plans are to follow Jon Avendano MD
--- NOTE | 2017-01-07 11:40 | PN ---
Progress Note, Physician History of Present Illness: Pt. w/o SOB. CP. palp. Pt. with heartburns, seen by Dr. Avendano at that time, not related to heart. - Current Medication List Current Medications: Active Medications Albuterol Sulfate (Ventolin 0.083% Nebulizer Soln -) 1 amp NEB Q4H PRN PRN Reason: SHORT OF BREATH/WHEEZING Aspirin (Asa -) 81 mg PO DAILY [facility] Last Admin: 01/07/17 09:16 Dose: 81 mg Atorvastatin Calcium (Lipitor -) 20 mg PO HS [facility] Last Admin: 01/06/17 22:10 Dose: 20 mg Diltiazem HCl (Cardizem Cd -) 120 mg PO BID [facility] Last Admin: 01/07/17 09:16 Dose: 120 mg Heparin Sodium (Porcine) (Heparin -) 5,000 unit SQ BID [facility] Last Admin: 01/07/17 09:17 Dose: 5,000 unit Insulin Aspart (Novolog Vial Sliding Scale -) 1 vial SQ ACHS [facility] PRN Reason: Protocol Last Admin: 01/07/17 11:12 Dose: 4 units Levothyroxine Sodium (Synthroid -) 88 mcg PO DAILY@0700 [facility] Last Admin: 01/07/17 06:16 Dose: 88 mcg Loratadine (Claritin -) 10 mg PO DAILY [facility] Last Admin: 01/07/17 09:17 Dose: 10 mg Metformin HCl (Glucophage -) 500 mg PO BID@0700,1630 [facility] Last Admin: 01/07/17 06:16 Dose: 500 mg Pantoprazole Sodium (Protonix -) 20 mg PO DAILY [facility] Last Admin: 01/07/17 09:17 Dose: 20 mg Prednisone (Deltasone -) 20 mg PO DAILY [facility] Last Admin: 01/07/17 09:17 Dose: 20 mg Sodium Chloride ([place] Nasal [place] -) 2 spray NS BID PRN PRN Reason: NASAL CONGESTION - Objective Vital Signs: Vital Signs Temperature 97.7 F 01/07/17 08:45 Pulse Rate 68 01/07/17 08:45 Respiratory Rate 20 01/07/17 08:45 Blood Pressure 118/70 01/07/17 08:45 O2 Sat by Pulse Oximetry (%) 94 L 01/06/17 21:00 Constitutional: Yes: Anxious. No: Diaphoresis Cardiovascular: Yes: Regular Rate and Rhythm, S1, S2 Respiratory: Yes: Regular, Other (coarse BS) Gastrointestinal: Yes: Normal Bowel Sounds, Soft. No: Palpable Mass Neurological: Yes: Alert, Oriented. No: Unsteady Gait Labs: CBC, BMP 01/07/17 07:40 01/07/17 07:05 BGM trend was reviewed- with pt and pt's nurse Problem List - Problems (1) Acute exacerbation of chronic obstructive pulmonary disease (COPD) Assessment/Plan: on Steroids Code(s): J44.1 - CHRONIC OBSTRUCTIVE PULMONARY DISEASE W (ACUTE) EXACERBATION (2) Diabetes mellitus, new onset Assessment/Plan: On BGM and Insulin coverage around the clock. Pt doesn't feel comfortable to do BGM and Regular Insulin coverage alone at home; pt. agrees to learn; pt. tried but states that makes her anxious and cannot do it alone at home. I d/w her nurse and would let pt. do ( supervised) it every single time. Station Chief consult Code(s): E11.9 - TYPE 2 DIABETES MELLITUS WITHOUT COMPLICATIONS (3) History of resection of pancreas Assessment/Plan: like contributes to low insulin secretion. Code(s): Z90.410 - ACQUIRED TOTAL ABSENCE OF PANCREAS (4) Coronary artery disease Assessment/Plan: to f/u as outpatient with Dr. Avendano Code(s): I25.10 - ATHSCL HEART DISEASE OF [place] CORONARY ARTERY W/O ANG PCTRS Qualifiers: Coronary Disease-Associated Artery/Lesion type: [place] artery [place] vs. transplanted heart: [place] heart Associated angina: without angina Qualified Code(s): I25.10 - Atherosclerotic heart disease of [place] coronary artery without angina pectoris (5) Hyperlipidemia Code(s): E78.5 - HYPERLIPIDEMIA, UNSPECIFIED Qualifiers: Hyperlipidemia type: pure hypercholesterolemia Qualified Code(s): E78.0 - Pure hypercholesterolemia (6) Hypertension Code(s): I10 - ESSENTIAL (PRIMARY) HYPERTENSION Qualifiers: Hypertension type: essential hypertension Qualified Code(s): I10 - Essential (primary) hypertension Assessment/Plan To monitor BGM and insulin coverage and pt's progress (in checking BGM and Insulin coverage) likely to DC in AM
[2017-01-07] MEDS: ATORVASTATIN CA 20 MG TABLET (FP) PO SCH (22:32)
[2017-01-08] MEDS: metFORMIN HCL 500 MG TABLET (FP) PO SCH (06:33)
[2017-01-08] MEDS: INSULIN SLIDING SCALE (NOVOLOG) 1 VIAL SQ SCH ×2 (06:34→11:58)
[2017-01-08] MEDS: LEVOTHYROXINE NA 88 MCG TABLET (FP) PO SCH (06:34)
[2017-01-08] MEDS: LORATADINE 10 MG TABLET PO SCH (09:44)
[2017-01-08] MEDS: PANTOPRAZOLE 20 MG TABLET (FP) PO SCH (09:44)
[2017-01-08] MEDS: predniSONE 20 MG TABLET (UD) PO SCH (09:44)
[2017-01-08] MEDS: ASPIRIN 81 MG CHEWABLE TABLETS PO SCH (09:44)
[2017-01-08] MEDS: HEPARIN NA (PORCINE) 5,000 UNITS/ML 1ML VIAL SQ SCH (09:45)
--- NOTE | 2017-01-08 11:07 | DS ---
Physical Examination Vital Signs: Vital Signs Temperature 98.2 F 01/08/17 06:26 Pulse Rate 58 L 01/08/17 06:26 Respiratory Rate 16 01/08/17 06:26 Blood Pressure 135/75 01/08/17 06:26 O2 Sat by Pulse Oximetry (%) 95 01/07/17 21:00 Findings/Remarks: in bed nad feels better wanst to go home, GLU 187 better; WBC lower meds and diet d/w pt she also spoke with investment representative will see cardio and pulm outpt; all scripts done, will have echo and stress test outpt does not need home O2 per pre and post Constitutional: Yes: No Distress, Calm Eyes: Yes: Conjunctiva Clear HENT: Yes: Atraumatic Neck: Yes: Supple Cardiovascular: Yes: Regular Rate and Rhythm Respiratory: Yes: CTA Bilaterally Gastrointestinal: Yes: Soft. No: Distention, Tenderness Renal/: No: CVA Tenderness - Left, CVA Tenderness - Right Musculoskeletal: No: Joint Stiffness, Joint Swelling Extremities: No: Cold, Cool Edema: No Peripheral Pulses WNL: Yes Integumentary: No: Rash, Venous Stasis Changes Neurological: Yes: WNL, Alert, Oriented ...Motor Strength: WNL Psychiatric: Yes: WNL, Alert, Oriented. No: Agitated, Suicidal Ideation Labs: CBC, BMP 01/07/17 07:40 01/07/17 07:05 Discharge Summary Reason For Visit: OBSTUCTIVE CHRONIC BRONCHITIS WITH EXACERBATION Current Active Problems Acute exacerbation of chronic obstructive pulmonary disease (COPD) (Acute) COPD exacerbation (Acute) Diabetes mellitus, new onset (Acute) History of resection of pancreas (Acute) Procedures: Principal: COPD exac, IV steroids and nebs Other Procedures: cardiology and pulmonary evals; chest CT. also new onset diabetes started on meds and diet Hospital Course: improved with above; f/u as advised Condition: Improved - Instructions Diet, Activity, Other Instructions: f/u PCP in 2-3 days check labs, BP in office f/u cardiology and pulmonary in 1-2 weeks for further w/u; diabetic diet RTER if worse or recurrent symptoms. Referrals: Flores Regalado [Primary Care Provider] - Connor Burleson MD [Staff Physician] - Ruddy Aguilar MD, MD [Staff Physician] - Disposition: HOME - Home Medications Comprehensive Discharge Medication List: Ambulatory Orders Aspirin [Baby Aspirin] 81 mg PO DAILY #0 tab.chew 03/16/12 Levothyroxine [Synthroid -] 88 mcg PO DAILY #0 tablet 03/16/12 Simvastatin [Zocor] 40 mg PO DAILY #0 tablet 03/16/12 Diltiazem Cd [Cardizem Cd -] 120 mg PO BID 09/23/15 Nadolol [Corgard -] 40 mg PO DAILY 01/04/17 Albuterol Sulfate [Proair Respiclick] 90 mcg IH QID PRN #1 [email or web address] 01/06/17 Fluticasone Propionate [Flovent Diskus] 50 mcg IH BID #1 blst.w.[email or web address] 01/06/17 Loratadine [Claritin -] 10 mg PO DAILY tablet 01/06/17 Metformin HCl [Glucophage -] 500 mg PO BID@0700,1630 #60 tablet 01/06/17 Pantoprazole Sodium [Protonix -] 20 mg PO DAILY #7 tablet.ec 01/06/17 Prednisone 10 mg PO AM #20 tablet 01/06/17 taper doses as advised Sodium Chloride Nasal [place] [[place] Nasal [place] -] 2 spray NS BID PRN #0 spray 01/06/17
--- NOTE | 2017-01-08 11:20 | PN ---
Progress Note, Physician Chief Complaint: Events noted Had epigastric discomfort, but appears to be anxiety related or musculoskeletal History of Present Illness: Patient was seen and examined. Awake and alert. Chart was reviewed No wheezes. Appears anxious at times Denies chest pain or palpitations Denies shortness of breath - Current Medication List Current Medications: Active Medications Albuterol Sulfate (Ventolin 0.083% Nebulizer Soln -) 1 amp NEB Q4H PRN PRN Reason: SHORT OF BREATH/WHEEZING Aspirin (Asa -) 81 mg PO DAILY [facility] Last Admin: 01/08/17 09:44 Dose: 81 mg Atorvastatin Calcium (Lipitor -) 20 mg PO HS [facility] Last Admin: 01/07/17 22:32 Dose: 20 mg Diltiazem HCl (Cardizem Cd -) 120 mg PO BID [facility] Last Admin: 01/08/17 09:44 Dose: 120 mg Heparin Sodium (Porcine) (Heparin -) 5,000 unit SQ BID [facility] Last Admin: 01/08/17 09:45 Dose: 5,000 unit Insulin Aspart (Novolog Vial Sliding Scale -) 1 vial SQ ACHS [facility] PRN Reason: Protocol Last Admin: 01/08/17 06:34 Dose: 2 units Levothyroxine Sodium (Synthroid -) 88 mcg PO DAILY@0700 [facility] Last Admin: 01/08/17 06:34 Dose: 88 mcg Loratadine (Claritin -) 10 mg PO DAILY [facility] Last Admin: 01/08/17 09:44 Dose: 10 mg Metformin HCl (Glucophage -) 500 mg PO BID@0700,1630 [facility] Last Admin: 01/08/17 06:33 Dose: 500 mg Pantoprazole Sodium (Protonix -) 20 mg PO DAILY [facility] Last Admin: 01/08/17 09:44 Dose: 20 mg Prednisone (Deltasone -) 20 mg PO DAILY [facility] Last Admin: 01/08/17 09:44 Dose: 20 mg Sodium Chloride ([place] Nasal [place] -) 2 spray NS BID PRN PRN Reason: NASAL CONGESTION - Objective Vital Signs: Vital Signs Temperature 98.2 F 01/08/17 06:26 Pulse Rate 58 L 01/08/17 06:26 Respiratory Rate 16 01/08/17 06:26 Blood Pressure 135/75 01/08/17 06:26 O2 Sat by Pulse Oximetry (%) 95 01/07/17 21:00 Neck: Yes: Supple Cardiovascular: Yes: Regular Rate and Rhythm, S1, S2 Respiratory: Yes: CTA Bilaterally Gastrointestinal: Yes: Normal Bowel Sounds, Soft. No: Tenderness Edema: No Labs: CBC, BMP 01/07/17 07:40 01/07/17 07:05 Problem List - Problems (1) COPD exacerbation Code(s): J44.1 - CHRONIC OBSTRUCTIVE PULMONARY DISEASE W (ACUTE) EXACERBATION (2) Coronary artery disease Code(s): I25.10 - ATHSCL HEART DISEASE OF [place] CORONARY ARTERY W/O ANG PCTRS Qualifiers: Coronary Disease-Associated Artery/Lesion type: [place] artery [place] vs. transplanted heart: [place] heart Associated angina: without angina Qualified Code(s): I25.10 - Atherosclerotic heart disease of [place] coronary artery without angina pectoris (3) Hyperlipidemia Code(s): E78.5 - HYPERLIPIDEMIA, UNSPECIFIED Qualifiers: Hyperlipidemia type: pure hypercholesterolemia Qualified Code(s): E78.0 - Pure hypercholesterolemia (4) Hypertension Code(s): I10 - ESSENTIAL (PRIMARY) HYPERTENSION Qualifiers: Hypertension type: essential hypertension Qualified Code(s): I10 - Essential (primary) hypertension (5) Hypothyroidism Code(s): E03.9 - HYPOTHYROIDISM, UNSPECIFIED Qualifiers: Hypothyroidism type: unspecified Qualified Code(s): E03.9 - Hypothyroidism, unspecified (6) Status post coronary artery bypass graft Code(s): Z95.1 - PRESENCE OF AORTOCORONARY BYPASS GRAFT Assessment/Plan 1. Acute exacerbation of COPD with intermittent dyspnea - improved 2. CAD s/p [place], CABG, angina pectoris 3. Hypothyroidism 4. Hyperlipidemia 5. HTN/HCVD PLAN: 1. Bronchodilator and O2 as needed 2. Continue ASA 81 mg QD, Cardizem CD 120 mg BID, Lipitor 20 mg QHS 3. Further CV evaluation including echocardiography and stress testing once COPD exacerbation improves and can be done as outpatient. Discharge home today and patient will make appointment in office Further plans are to follow Jon Avendano MD
[2017-01-08 12:21] VITALS: BP 139/85; PULSE 76; TEMP 98
== END 2017-01-08 12:21 | disposition home or self-care (01) | DRG 192 ==
LOC: JER 12:25 → JERBED 18:32 → J8W 20:58
PROVIDERS: ADMIT Family Medicine; ATTEND Family Medicine
DX: J44.1 Chronic obstructive pulmonary disease with (acute) exacerbation (principal); I11.9 Hypertensive heart disease without heart failure; I25.10 Atherosclerotic heart disease of native coronary artery without angina pectoris; Z87.891 Personal history of nicotine dependence; I35.1 Nonrheumatic aortic (valve) insufficiency; I34.0 Nonrheumatic mitral (valve) insufficiency; E11.9 Type 2 diabetes mellitus without complications; E78.5 Hyperlipidemia, unspecified; Z95.1 Presence of aortocoronary bypass graft; E03.9 Hypothyroidism, unspecified
CPT/HCPCS: 36415; 71260-TC; 74177-TC; 80048; 80053; 80061; 82550; 83036; 83721; 83880; 84443; 84484; 85025; 87040; 93005; 93010; 94761; 99282-25; J1644; Q9967

== ENCOUNTER 2017-12-10 14:40 | Observation (INO) | payer OTHER ==
--- NOTE | 2017-12-10 21:15 | PDOC ---
History of Present Illness - General History Source: Patient Exam Limitations: No Limitations - History of Present Illness Initial Comments: 12/10/17 21:24 The patient is a 72 year old female, with a significant past medical history of HTN, HLD, CAD s/p CABG, NIDDM, Hypothyroidism, COPD, Emphysema who presents to the emergency department with abdominal pain for the past 3 days. Patient reports gradual onset of lower abdominal discomfort which she initially described as a "bulging out of her stomach". Today, patient's pain has progressively worsened. Patient endorses intermittent sharp, dull, lower abdominal pain, 7/10 in severity, nonradiating with associated nausea. Pain is exacerbated upon touch and positional changes however denies any alleviating factors. Patient was seen by PCP and was sent to the ED for further evaluation. Patient denies any new physical activity, heavy lifting, coughing or sneezing. Patient denies fever, chills, vomit, diarrhea or constipation. Patient denies chest pain, headache or dizziness. Patient denies dysuria, frequency, urgency or hematuria. Patient denies sick contacts or recent travel. Allergies: None Past surgical history: Quadruple CABG (1992), Whipple surgery for pseudocyst with splenectomy/partial pancreatectomy, appendectomy, cholecystectomy Social history: Former smoker (1992) PCP: Dr. Flores Regalado <Latia Perez - Last Filed: 12/10/17 21:34> - General History Source: Patient <Alexx Nguyen - Last Filed: 12/11/17 00:23> - General Chief Complaint: Pain Stated Complaint: ABD PAIN (PCP SENT) Time Seen by Provider: 12/10/17 20:50 Past History <Latia Perez - Last Filed: 12/10/17 21:34> - Past Medical History Anemia: No Asthma: No Cancer: No Cardiac Disorders: Yes (cabg) CVA: No COPD: Yes CHF: No Dementia: No Diabetes: Yes GI Disorders: Yes (sbo) Disorders: No HTN: Yes Hypercholesterolemia: Yes Liver Disease: No Seizures: No Thyroid Disease: Yes - Surgical History Abdominal Surgery: Yes (abd hernia repair, spleen) Appendectomy: Yes Cardiac Surgery: Yes (triple bypass) Cholecystectomy: Yes Lung Surgery: No Neurologic Surgery: No Orthopedic Surgery: No - Immunization History Immunization Up to Date: Yes - Suicide/Smoking/Psychosocial Hx Smoking Status: Yes Smoking History: Never smoked Have you smoked in the past 12 months: No Number of Cigarettes Smoked Daily: 0 If you are a former smoker, when did you quit?: [place] 1992 Cigars Per Day: 10 Information on smoking cessation initiated: No Hx Alcohol Use: No Drug/Substance Use Hx: No Substance Use Type: None Hx Substance Use Treatment: No <Alexx Nguyen - Last Filed: 12/11/17 00:23> - Past Medical History Allergies/Adverse Reactions: Allergies Allergy/AdvReac Type Severity Reaction Status Date / Time No Known Allergies Allergy Verified 12/10/17 14:59 Home Medications: Ambulatory Orders Aspirin [Baby Aspirin] 81 mg PO DAILY #0 tab.chew 03/16/12 Levothyroxine [Synthroid -] 88 mcg PO DAILY #0 tablet 03/16/12 Simvastatin [Zocor] 40 mg PO DAILY #0 tablet 03/16/12 Diltiazem Cd [Cardizem Cd -] 120 mg PO BID 09/23/15 Nadolol [Corgard -] 40 mg PO DAILY 01/04/17 Albuterol Sulfate [Proair Respiclick] 90 mcg IH QID PRN #1 aer.pow.ba 01/06/17 Fluticasone Propionate [Flovent Diskus] 50 mcg IH BID #1 blst.w.dev 01/06/17 Loratadine [Claritin -] 10 mg PO DAILY tablet 01/06/17 Metformin HCl [Glucophage -] 500 mg PO BID@0700,1630 #60 tablet 01/06/17 Pantoprazole Sodium [Protonix -] 20 mg PO DAILY #7 tablet.ec 01/06/17 Perindopril Erbumine 8 mg PO ASDIR 12/10/17 Review of Systems - Review of Systems Able to Perform ROS?: Yes Comments:: 12/10/17 21:25 GENERAL/CONSTITUTIONAL: No fever or chills. No weakness. HEAD, EYES, EARS, NOSE AND THROAT: No change in vision. No ear pain or discharge. No sore throat. GASTROINTESTINAL: + abdominal pain. +nausea. No vomiting, diarrhea or constipation. GENITOURINARY: No dysuria, frequency, or change in urination. CARDIOVASCULAR: No chest pain or shortness of breath. RESPIRATORY: No cough, wheezing, or hemoptysis. MUSCULOSKELETAL: No joint or muscle swelling or pain. No neck or back pain. SKIN: No rash NEUROLOGIC: No headache, vertigo, loss of consciousness, or change in strength/ sensation. ENDOCRINE: No increased thirst. No abnormal weight change. HEMATOLOGIC/LYMPHATIC: No anemia, easy bleeding, or history of blood clots. ALLERGIC/IMMUNOLOGIC: No hives or skin allergy. <Latia Perez - Last Filed: 12/10/17 21:34> - Review of Systems Able to Perform ROS?: Yes Is the patient limited Tunisian proficient: No <Alexx Nguyen - Last Filed: 12/11/17 00:23> *Physical Exam - Vital Signs Last Vital Signs Temp Pulse Resp BP Pulse Ox 98.4 F 105 H 18 137/76 100 12/10/17 14:55 12/10/17 14:55 12/10/17 14:55 12/10/17 14:55 12/10/17 14:55 - Physical Exam Comments: 12/10/17 21:25 GENERAL: Awake, alert, and fully oriented, in no acute distress HEAD: No signs of trauma EYES: PERRLA, EOMI, sclera anicteric, conjunctiva clear ENT: Auricles normal inspection, hearing grossly normal, nares patent, oropharynx clear without exudates. Moist mucosa NECK: Normal ROM, supple, no lymphadenopathy, JVD, or masses LUNGS: Breath sounds equal, clear to auscultation bilaterally. No wheezes, and no crackles HEART: Regular rate and rhythm, normal S1 and S2, no murmurs, rubs or gallops EXTREMITIES: Normal range of motion, no edema. No clubbing or cyanosis. No cords, erythema, or tenderness NEUROLOGICAL: Cranial nerves II through XII grossly intact. Normal speech, normal gait SKIN: Warm, Dry, normal turgor, no rashes or lesions noted. <Latia Perez - Last Filed: 12/10/17 21:34> - Vital Signs Last Vital Signs Temp Pulse Resp BP Pulse Ox 98.4 F 105 H 18 137/76 100 12/10/17 14:55 12/10/17 14:55 12/10/17 14:55 12/10/17 14:55 12/10/17 14:55 - Physical Exam Comments: GENERAL: Well developed, well nourished. Awake and alert. No acute distress. ABDOMINAL: +tender. +distended to umbilical region ~5cm No rebound or guarding. No organomegaly. Normoactive bowel sounds. SKIN: Warm and dry. Normal capillary refill. No rashes. No jaundice. <Alexx Nguyen - Last Filed: 12/11/17 00:23> ED Treatment Course - LABORATORY CBC & Chemistry Diagram: 12/10/17 21:30 12/10/17 21:30 <Latia Perez - Last Filed: 12/10/17 21:34> - LABORATORY CBC & Chemistry Diagram: 12/10/17 21:30 12/10/17 21:30 - RADIOLOGY Radiograph Interpretation: 12/10/17 23:56 CAT scan abdomen and pelvis with by mouth and IV contrast: In comparison to a prior CT study of 01/04/2017 interval mild enlargement of an umbilical hernia is seen containing fat only with the subcutaneous hernia sac currently measuring 5 x 4.5 x 3 cm previously 5 x 4.5 x 2.3 cm. <Alexx Nguyen - Last Filed: 12/11/17 00:23> Progress Note - Progress Note Progress Note: 2341hrss: Called Dr. Devon Regalado [phone] 2354hrs: Spoke to Dr. Dilip Regalado/covering for Dr. Flores Regalado [phone] Admit to hospitalist service for obs. Req Dr. Kenroy Kong/general surgery for consult 0009hrs: Microblogged Hospitalist 0011hrs: Called Dr. Kenroy Kong/general surgery [phone]. Gordillo covering Dr. Brayden paulson hospitalist service call him in the am 0020hrs: Spoke to DR. Gonsales/hospitalist. will admit <Alexx Nguyen - Last Filed: 12/11/17 00:23> *DC/Admit/Observation/Transfer - Attestations Scribe Attestion: 12/10/17 21:26 Documentation prepared by Latia Perez, acting as medical planner for BETHEL Bates <Latia Perez - Last Filed: 12/10/17 21:34> - Discharge Dispostion Admit: Yes <Alexx Nguyen - Last Filed: 12/11/17 00:23> Diagnosis at time of Disposition: Umbilical hernia Qualifiers: Obstruction and gangrene presence: without obstruction or gangrene Qualified Code(s): K42.9 - Umbilical hernia without obstruction or gangrene - Discharge Dispostion Condition at time of disposition: Stable - Referrals Referrals: Flores Regalado [Primary Care Provider] - - Patient Instructions - Post Discharge Activity
[2017-12-10] MEDS ORDERED: morphine CARPU-JECT 2 MG/1 ML DISP.SYRIN IVPUSH ONE (21:16)
[2017-12-10] MEDS ORDERED: SODIUM CHLORIDE 1,000 ML IV STA (21:16)
[2017-12-10 21:39] LABS: BASO % 1.4 % (0-2.0); EOS % 6.1 % (0-4.5); HEMATOCRIT 38.4 % (32.4-45.2); HEMOGLOBIN 12.7 GM/dL (10.7-15.3); LYMPH % 41.3 % (8-40); MCH 30.6 pg (25.7-33.7); MCHC 33.1 g/dl (32.0-36.0); MEAN CELL VOLUME 92.6 fl (80-96); MEAN PLT VOLUME 8.7 fl (7.5-11.1); MONO % 14.5 % (3.8-10.2); NEUT % 36.7 % (42.8-82.8); PLATELET COUNT 303 K/MM3 (134-434); RBC 4.15 M/mm3 (3.60-5.2); RDW 13.3 % (11.6-15.6); WHITE BLOOD COUNT 9.9 K/mm3 (4.0-10.0)
[2017-12-10] MEDS ORDERED: HYDROmorphone HCL CARPU-JECT 1 MG/1 ML DISP.SYRIN IVPUSH ONE (21:58)
[2017-12-10 22:00] LABS: URINE APPEARANCE CLEAR; URINE BILIRUBIN NEGATIVE (NEGATIVE); URINE BLOOD NEGATIVE (NEGATIVE); URINE COLOR STRAW; URINE GLUCOSE (UA) NEGATIVE (NEGATIVE); URINE KETONE NEGATIVE (NEGATIVE); URINE LEUK ESTERASE NEGATIVE (NEGATIVE); URINE NITRITE NEGATIVE (NEGATIVE); URINE PROTEIN NEGATIVE (NEGATIVE); URINE UROBILINOGEN NEGATIVE mg/dL (0.2-1.0)
[2017-12-10] MEDS ORDERED: HYDROmorphone HCL CARPU-JECT 2 MG/1 ML DISP.SYRIN ONE (22:04)
[2017-12-10 22:10] LABS: ALBUMIN 3.3 g/dl (3.4-5.0); ALK PHOS 72 U/L (45-117); ANION GAP 6 (8-16); BILIRUBIN,TOTAL 0.8 mg/dL (0.2-1.0); BLOOD UREA NITROGEN 15 mg/dL (7-18); CALCIUM 9.3 mg/dL (8.5-10.1); CHLORIDE 105 mmol/L (98-107); CO2 28 mmol/L (21-32); CREATININE 0.7 mg/dL (0.55-1.02); GLUCOSE,RANDOM 118 mg/dL (74-106); POTASSIUM 4.1 mmol/L (3.5-5.1); SGOT/AST 13 U/L (15-37); SGPT/ALT 20 U/L (12-78); SODIUM 139 mmol/L (136-145); TOT PROT 6.6 g/dl (6.4-8.2)
[2017-12-10] MEDS ORDERED: ONDANSETRON 4 MG/2 ML VIAL IVPUSH ONE (22:15)
[2017-12-10] MEDS ORDERED: ONDANSETRON 4 MG/2 ML VIAL ONE (22:40)
--- NOTE | 2017-12-11 00:19 | PN ---
Teaching Attending Note Name of Resident: Tenzin Tobias ATTENDING PHYSICIAN STATEMENT I saw and evaluated the patient. I reviewed the resident's note and discussed the case with the resident. I agree with the resident's findings and plan as documented. SUBJECTIVE: 72 F with pmhx of HTN, HLD, CAD s/p CABG, Hypothyriodism. COPD, emphysema who presents with abdominal pain. States she has had gradual abdominal pain for 3 days in duration. Notes she felt a "buldging out of her stomach." States pain became worse today and pain was sharp in nature. Pt. was seen by PCP in office and sent to ED. She also notes she lost concioussness in the car on 11/25 and that she has a chronic facial droop that she had a full evaluation for. Denies any n/v/d. No chest pain or pressure. No dizziness or lightheadedness. States pain has improved now. OBJECTIVE: Physical: VS: Vital Signs Period Temp Pulse Resp BP Sys/Moe Pulse Ox Last 24 Hr 98.4 F 105 18 137/76 100 GEN: NAD, Resting in bed, AA0X3 HEENT: NCAT, PERRL, Throat without erythema or exudates CARD: RRR S1, S2 RESP:CTAB ABD: BSx4, NTD to palpation, Umbilical hernia EXT: - C/C/E CBCD WBC 9.9 K/mm3 (4.0-10.0) 12/10/17 21:30 RBC 4.15 M/mm3 (3.60-5.2) 12/10/17 21:30 Hgb 12.7 GM/dL (10.7-15.3) 12/10/17 21:30 Hct 38.4 % (32.4-45.2) 12/10/17 21:30 MCV 92.6 fl (80-96) 12/10/17 21:30 MCHC 33.1 g/dl (32.0-36.0) 12/10/17 21:30 RDW 13.3 % (11.6-15.6) 12/10/17 21:30 Plt Count 303 K/MM3 (134-434) 12/10/17 21:30 MPV 8.7 fl (7.5-11.1) 12/10/17 21:30 CMP Sodium 139 mmol/L (136-145) 12/10/17 21:30 Potassium 4.1 mmol/L (3.5-5.1) 12/10/17 21:30 Chloride 105 mmol/L (98-107) 12/10/17 21:30 Carbon Dioxide 28 mmol/L (21-32) 12/10/17 21:30 Anion Gap 6 (8-16) L 12/10/17 21:30 BUN 15 mg/dL (7-18) 12/10/17 21:30 Creatinine 0.7 mg/dL (0.55-1.02) 12/10/17 21:30 Creat Clearance w eGFR > 60 (>60) 12/10/17 21:30 Random Glucose 118 mg/dL (74-106) H 12/10/17 21: Calcium 9.3 mg/dL (8.5-10.1) 12/10/17 21: Total Bilirubin 0.8 mg/dL (0.2-1.0) D 12/10/17 21:30 AST 13 U/L (15-37) L 12/10/17: ALT 20 U/L (12-78) 12/10/17 21:30 Alkaline Phosphatase 72 U/L (45-117) 12/10/17 21:30 Total Protein 6.6 g/dl (6.4-8.2) 12/10/17 21:30 Albumin 3.3 g/dl (3.4-5.0) L 12/10/17 21:30 EKG-Pending ABD/PELVIS CT- Interval mild enlargement of a umbilical hernia seen containing fat only, with the subcutaneous hernia sac measuring 5 X 4.5 X 3 cm previously 5X4.5 X 2.3 cm. Home Medications Medication Instructions Recorded Aspirin [Baby Aspirin] 81 mg PO DAILY #0 tab.chew 03/16/12 Levothyroxine [Synthroid -] 88 mcg PO DAILY #0 tablet 03/16/12 Simvastatin [Zocor] 40 mg PO DAILY #0 tablet 03/16/12 Diltiazem Cd [Cardizem Cd -] 120 mg PO BID 09/23/15 Nadolol [Corgard -] 40 mg PO DAILY 01/04/17 Albuterol Sulfate [Proair 90 mcg IH QID PRN #1 aer.pow.ba 01/06/17 Respiclick] Fluticasone Propionate [Flovent 50 mcg IH BID #1 blst.w.dev 01/06/17 Diskus] Loratadine [Claritin -] 10 mg PO DAILY tablet 01/06/17 Metformin HCl [Glucophage -] 500 mg PO BID@0700,1630 #60 tablet 01/06/17 Pantoprazole Sodium [Protonix -] 20 mg PO DAILY #7 tablet.ec 01/06/17 Perindopril Erbumine 8 mg PO ASDIR 12/10/17 ASSESSMENT AND PLAN: 72 F with pmhx of HTN, HLD, CAD s/p CABG, Hypothyriodism. COPD, emphysema who presents with abdominal pain, being admitted for abdominal pain and hernia 1.) Abdominal Pain - Most likley due to umbilical hernia - Sx. Consulted - Type & Screen - NPO - IVF gentle - Pain Control 2.) CAD s/p CABG - C/W Home meds 3.) Hypothyriodism - C/W Home meds 4.) DM II - FS - RAISS - Hold Metformin 5.) GERD - C/W Protonix 6.) Loss of Conscioussnes - Occurred 11/25 - Pt. Refused full eval at this time and stated she will have it done outpatient (Echo/CT Head/Carotids) 7.) Dvt PPx - Low Risk - SCDs Place in Obs
[2017-12-11] MEDS ORDERED: SODIUM CHLORIDE 1,000 ML IV SCH (01:30)
[2017-12-11] MEDS ORDERED: PATIENT'S OWN MEDICATION (NON-FORMULARY) (Albuterol Sulfate [Proair Respiclick] 90 MCG) IH PRN (01:56)
[2017-12-11] MEDS ORDERED: PERINDOPRIL ERBUMINE PO SCH (02:00)
--- NOTE | 2017-12-11 02:04 | HP ---
CHIEF COMPLAINT: Abdominal pain PCP: Flores Regalado Neuro: Dr. Pina HISTORY OF PRESENT ILLNESS: Pt is a 72 y/o F with PMH multiple abdominal surgeries who presents to ED with 3d of intermittent sharp & dull nonradiating lower abdominal pain associated with nausea and a palpable mass protruding from her belly. Pt states she has had appendectomy, cholecystectomy, whipple, and had surgical repair of "twisted bowels" in 2001. Pt states she tends to be constipated in general, but had a soft BM this morning. Denies bloodly/dark stools. Pt is able to eat and drink without difficulty. Denies CP, SOB, fever, chills, dysuria. Pt provides history of single episode on 11/25 during which she was out with her family when she devloped severe abdominal pain. Pain was relieved by BM, but later, in the car, pain recurred. Pt doubled over then sat back up and feinted. Pt's daughter is a nurse and was concerned for a stroke as the patient had a facial droop. 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 She gets botox from Dr. Benavides for this and states the botox gives her a left eyelid droop. Pt also sees Dr. 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 Pt clearly states she does not want any of these symptoms worked up during this hospital stay and will follow up with her out pt doctors as they are already aware of and familiar with her symptoms. ER course was notable for: (1) labs unremarkable (2) CT shows 5x4.5x3 cm fat-containing umbilical hernia (3) non-reducible in ED Recent Travel: Denies PAST MEDICAL HISTORY: HTN, HLD, CAD s/p CABG, NIDDM, Hypothyroid, COPD, Emphysema PAST SURGICAL HISTORY: Whipple, appenectomy, cholecystectomy, volvulous repair (2001) Social History: Smoking: quit in 1992 Alcohol: denies Drugs: denies Family History: denies Allergies No Known Allergies Allergy (Verified 12/10/17 14:59) HOME MEDICATIONS: Home Medications Medication Instructions Recorded Aspirin [Baby Aspirin] 81 mg PO DAILY #0 tab.chew 03/16/12 Levothyroxine [Synthroid -] 88 mcg PO DAILY #0 tablet 04/28/12 Simvastatin [Zocor] 40 mg PO DAILY #0 tablet 03/16/12 Diltiazem Cd [Cardizem Cd -] 120 mg PO BID 09/23/15 Nadolol [Corgard -] 40 mg PO DAILY 01/04/17 Albuterol Sulfate [Proair 90 mcg IH QID PRN #1 aer.pow.ba 01/06/17 Respiclick] Fluticasone Propionate [Flovent 50 mcg IH BID #1 blst.w.dev 01/06/17 Diskus] Loratadine [Claritin -] 10 mg PO DAILY tablet 01/06/17 Metformin HCl [Glucophage -] 500 mg PO BID@0700,1630 #60 tablet 01/06/17 Pantoprazole Sodium [Protonix -] 20 mg PO DAILY #7 tablet.ec 01/06/17 Perindopril Erbumine 8 mg PO ASDIR 12/10/17 REVIEW OF SYSTEMS CONSTITUTIONAL: Absent: fever, chills, diaphoresis, generalized weakness, malaise, loss of appetite, weight change HEENT: Absent: rhinorrhea, nasal congestion, throat pain, throat swelling, difficulty swallowing, mouth swelling, ear pain, eye pain, visual changes CARDIOVASCULAR: syncope Absent: chest pain, , palpitations, irregular heart rate, lightheadedness, peripheral edema RESPIRATORY: Absent: cough, shortness of breath, dyspnea with exertion, orthopnea, wheezing, stridor, hemoptysis GASTROINTESTINAL:abdominal pain, nausea Absent: , abdominal distension, vomiting, diarrhea, constipation, melena, hematochezia GENITOURINARY: Absent: dysuria, frequency, urgency, hesitancy, hematuria, flank pain, genital pain MUSCULOSKELETAL: Absent: myalgia, arthralgia, joint swelling, back pain, neck pain SKIN: Absent: rash, itching, pallor HEMATOLOGIC/IMMUNOLOGIC: Absent: easy bleeding, easy bruising, lymphadenopathy, frequent infections ENDOCRINE: Absent: unexplained weight gain, unexplained weight loss, heat intolerance, cold intolerance NEUROLOGIC: Absent: headache, focal weakness or paresthesias, dizziness, unsteady gait, seizure, mental status changes, bladder or bowel incontinence PSYCHIATRIC: Absent: anxiety, depression, suicidal or homicidal ideation, hallucinations. PHYSICAL EXAMINATION Vital Signs - 24 hr 12/10/17 14:55 Temperature 98.4 F Pulse Rate 105 H Respiratory 18 Rate Blood Pressure 137/76 O2 Sat by Pulse 100 Oximetry (%) GENERAL: Awake, alert, and fully oriented, in no acute distress. HEAD: Normal with no signs of trauma. EYES: Pupils equal, round and reactive to light, extraocular movements intact, sclera anicteric, conjunctiva clear. No lid lag. Left eyelid droop. EARS, NOSE, THROAT: oropharynx clear without exudates. Moist mucous membranes. NECK: Normal range of motion, supple without lymphadenopathy, JVD, or masses. No bruits LUNGS: Breath sounds equal, clear to auscultation bilaterally. No wheezes, and no crackles. No accessory muscle use. HEART: Distant heart sounds. Regular rate and rhythm, normal S1 and S2 without murmur, rub or gallop. ABDOMEN: Soft. Tender to palpation in b/l LQ, especially at suprapubic region. Suprapubic/inferior umbilical firm mass palpable and tender to palpation. Nonreducible. No hepatomegaly or splenomegaly. MUSCULOSKELETAL: Normal range of motion at all joints. No bony deformities or tenderness. No CVA tenderness. UPPER EXTREMITIES: 2+ pulses, warm, well-perfused. No cyanosis. No clubbing. No peripheral edema. LOWER EXTREMITIES: 2+ pulses, warm, well-perfused. No calf tenderness. No peripheral edema. NEUROLOGICAL: Cranial nerves II-XII intact. Normal speech. Gait not observed. PSYCHIATRIC: Cooperative. Good eye contact. Appropriate mood and affect. SKIN: Warm, dry, normal turgor, no rashes or lesions noted, normal capillary refill. Laboratory Results - last 24 hr 12/10/17 12/10/17 12/10/17 21:30 21:30 21:30 WBC 9.9 RBC 4.15 Hgb 12.7 Hct 38.4 MCV 92.6 MCH 30.6 MCHC 33.1 RDW 13.3 Plt Count 303 MPV 8.7 Neutrophils % 36.7 L D Lymphocytes % 41.3 H D Monocytes % 14.5 H Eosinophils % 6.1 H D Basophils % 1.4 D Sodium 139 Potassium 4.1 Chloride 105 Carbon Dioxide 28 Anion Gap 6 L BUN 15 Creatinine 0.7 Creat Clearance w eGFR > 60 Random Glucose 118 H Calcium 9.3 Total Bilirubin 0.8 D AST 13 L ALT 20 Alkaline Phosphatase 72 Total Protein 6.6 Albumin 3.3 L Urine Color Straw Urine Appearance Clear Urine pH 7.0 D Ur Specific Morton 1.008 Urine Protein Negative Urine Glucose (UA) Negative Urine Ketones Negative Urine Blood Negative Urine Nitrite Negative Urine Bilirubin Negative Urine Urobilinogen Negative Ur Leukocyte Esterase Negative ASSESSMENT/PLAN: Pt is a 72 y/o F with extensive history of abdominal surgeries who presents to ED with umbilical abdominal pain. Pt is being admitted for treatment of a hernia. #Hernia -shown on Abd/CT -nonreducible -NPO -Surg consult -pre op labs: CBC, CMP, PT, PTT, Type & Screen #Hypothyroidism -TSH -Synthroid #NIDDM -BGM -Metformin #HTN -Perindopril (ACEI) -Diltiazem #HLD -Zocor #COPD -ProAir (Salbutamol) -Flovent #GERD -Protonix #Hx CAD -Nadolol #FEN -NS -lytes wnl -NPO #Dispo -Med/Surg for probable surgery Tenzin Tobias MD PGY-1 IM Visit type - Emergency Visit Emergency Visit: Yes Care time: The patient presented to the Emergency Department on the above date and was hospitalized for further evaluation of their emergent condition. - New Patient This patient is new to me today: Yes Date on this admission: 12/11/17 - Critical Care Critical Care patient: No
[2017-12-11] MEDS ORDERED: LEVOTHYROXINE NA 88 MCG TABLET (FP) PO SCH (07:00)
[2017-12-11] MEDS: metFORMIN HCL 500 MG TABLET (FP) PO SCH ×2 (07:28→17:58)
[2017-12-11 07:52] LABS: EOS % 5.5 % (0-4.5); HEMATOCRIT 37.6 % (32.4-45.2); HEMOGLOBIN 12.2 GM/dL (10.7-15.3); LYMPH % 34.6 % (8-40); MCH 30.3 pg (25.7-33.7); MCHC 32.4 g/dl (32.0-36.0); MEAN CELL VOLUME 93.6 fl (80-96); MEAN PLT VOLUME 9.1 fl (7.5-11.1); MONO % 14.3 % (3.8-10.2); NEUT % 44.6 % (42.8-82.8); PLATELET COUNT 310 K/MM3 (134-434); RBC 4.01 M/mm3 (3.60-5.2); RDW 13.4 % (11.6-15.6); WHITE BLOOD COUNT 9.1 K/mm3 (4.0-10.0)
[2017-12-11 08:28] LABS: ALBUMIN 3.4 g/dl (3.4-5.0); ANION GAP 7 (8-16); BLOOD UREA NITROGEN 12 mg/dL (7-18); CALCIUM 9.4 mg/dL (8.5-10.1); CHLORIDE 103 mmol/L (98-107); CO2 30 mmol/L (21-32); GLUCOSE,RANDOM 125 mg/dL (74-106); MAGNESIUM 1.9 mg/dL (1.8-2.4); POTASSIUM 4.3 mmol/L (3.5-5.1); SODIUM 140 mmol/L (136-145)
[2017-12-11 08:33] LABS: ALK PHOS 83 U/L (45-117); BILIRUBIN,TOTAL 1.2 mg/dL (0.2-1.0); CREATININE 0.6 mg/dL (0.55-1.02); SGOT/AST 35 U/L (15-37); SGPT/ALT 39 U/L (12-78); TOT PROT 6.6 g/dl (6.4-8.2)
[2017-12-11 08:40] LABS: PROTHROMBIN TIME (PATIENT) 11.3 SEC (9.98-11.88)
[2017-12-11 08:43] LABS: ACTIVATED PTT 29.1 SECONDS (26.9-34.4)
[2017-12-11 08:57] LABS: URINE APPEARANCE CLEAR; URINE BILIRUBIN NEGATIVE (NEGATIVE); URINE BLOOD NEGATIVE (NEGATIVE); URINE COLOR STRAW; URINE GLUCOSE (UA) NEGATIVE (NEGATIVE); URINE KETONE NEGATIVE (NEGATIVE); URINE LEUK ESTERASE NEGATIVE (NEGATIVE); URINE NITRITE NEGATIVE (NEGATIVE); URINE PROTEIN NEGATIVE (NEGATIVE)
[2017-12-11] MEDS ORDERED: PANTOPRAZOLE 20 MG TABLET (FP) PO SCH (10:00)
[2017-12-11] MEDS ORDERED: LORATADINE 10 MG TABLET PO SCH (10:00)
[2017-12-11] MEDS ORDERED: ASPIRIN 81 MG CHEWABLE TABLETS PO SCH (10:00)
[2017-12-11] MEDS ORDERED: NADOLOL 40 MG TABLET (FP) PO SCH (10:00)
[2017-12-11 11:11] VITALS: BMI 26.9
--- NOTE | 2017-12-11 11:20 | PN ---
Progress Note (short form) - Note Progress Note: I spoke with surgery dr Salguero and cardio dr Arechiga - they will see pt for further recommendations; pt admitted to hospitalist service as OBS. Pt has some abdominal pain and the hernia is not reducible but pt is not obstructed and surgery is not an absolute emergency at this point. Given her previous cardiac hx and s/p syncope 2 weeks ago, cardio dr Arechiga to see pt before surgery. d/w pt.
--- NOTE | 2017-12-11 14:45 | PN ---
Progress Note (short form) - Note Progress Note: surgery pt seen and examined. full consult dictated. 72f with multiple previous surgeries admitted for fat containing ventral hernia. on exam abd is soft, nt, with incarcerated ventral hernia near central portion of abd. skin is no inflamed and no significant tenderness. Plan- incarcerated fat containing ventral hernia. recommend surgical repair as either inpatient or outpatient. pt will need cardiology eval. will start diet. surgically stable for d/c. [phone]
--- NOTE | 2017-12-11 16:05 | CONS ---
DATE OF CONSULTATION: 12/11/2017 REASON FOR CONSULTATION: Incarcerated ventral hernia. This is an emergency room consultation at the request of the emergency room physician. BRIEF HISTORY: This is a 72-year-old female with a longstanding history of ventral hernia. She has also had previous multiple abdominal surgeries including a removal of a portion of her pancreas as well as spleen, gallbladder, appendix, hernia repairs, and a small-bowel resection as well as a CABG. Patient presents because she had more discomfort from her ventral hernia. She had a CAT scan of her abdomen and pelvis which confirmed that it was fat containing. Her labs were noted to be normal with a normal white blood cell count and no shift. She was admitted to the hospital and request was made for a surgical evaluation. She denies nausea, denies vomiting. PAST MEDICAL HISTORY: Significant for hypertension, hyperlipidemia, coronary artery disease, diabetes, hypothyroidism, COPD, and emphysema. PAST SURGICAL HISTORY: Includes a resection of a portion of her pancreas, a splenectomy, a cholecystectomy and appendectomy, 2 groin hernia repairs, and a small-bowel resection as well as a coronary artery bypass graft. SOCIAL HISTORY: Significant for quitting tobacco. Negative for alcohol. ALLERGIES: She has no known drug allergies. HOME MEDICATIONS: Include aspirin, Synthroid, Zoloft, Cardizem, Corgard, albuterol, Flovent, Claritin, metformin, Protonix, and Terindopril. FAMILY HISTORY: Noncontributory. REVIEW OF SYSTEMS: General: Denies fatigue or malaise. Cardiac: Denies chest pain or palpitations. Respiratory: Denies shortness of breath or wheeze. Gastrointestinal: No nausea or vomiting. Genitourinary: Denies dysuria. Musculoskeletal: Denies joint pain and joint swelling. Psychiatric: Denies anxiety, depression, hearing voices. PHYSICAL EXAMINATION: General: This is a well-developed, well-nourished, 72-year-old female in no distress. Vital Signs: She is afebrile, has been since admission. HEENT: Her head is normocephalic. Her sclerae are anicteric. Neck: Supple. Chest: Clear. Abdomen: Soft. She has a hockey-stick scar in her left upper abdomen starting at the xiphoid, going down approximately 5 inches and then coursing to the patient's left. She has a transverse incision near her umbilicus on the left side. She also has 2 groin incisions and a McBurney incision. She has an obvious hernia located near the central portion of her abdomen with a mass which is appreciated in the subcutaneous space. It is nonreducible. It is nontender, and the overlying skin appears normal without inflammatory changes. Extremities: Edema. LABORATORY DATA: White blood cell count is normal at 9.1. Her chemistries are unremarkable. IMAGING: As in HPI, with a fat-containing hernia. ASSESSMENT: A 72-year-old female with incarcerated, fat-containing hernia with little change from previous CT. She appears nontoxic. At this point, patient should consider repair of this hernia. This could be done as an inpatient or an outpatient. Patient would need a cardiology evaluation and optimization prior to any surgery. We will start the patient on a low-salt diet. She is surgically stable for discharge if that is the plan by the medical team. If she is discharged, she can follow with me to be evaluated as an outpatient. My phone number is [phone]. If she stays in the hospital and is cleared by Cardiology, can attempt to do surgery this admission. DO TERRY MOCTEZUMA/[id number]
[2017-12-11 18:17] VITALS: BP 139/78; PULSE 92; TEMP 98
--- NOTE | 2017-12-11 18:54 | DS ---
Physical Examination Vital Signs: I was called to discharge the patient, patient is comfortable with no acute distress. Discussed with Dr. Ana Regalado is ok to discharge patient home and have the patient surgical clearance as an outpatient. Discussed with , patient will see as an outpatient for surgical clearance and arrange the surgery with as an outpatient. Patient wants to go home now. Temperature 98 F 12/11/17 18:00 Pulse Rate 92 H 12/11/17 18:00 Respiratory Rate 18 12/11/17 18:00 Blood Pressure 139/78 12/11/17 18:00 O2 Sat by Pulse Oximetry (%) 95 12/11/17 10:59 Labs: CBC, BMP 12/11/17 05:55 12/11/17 07:16 Discharge Summary Reason For Visit: UMBILICAL HERNIA Current Active Problems Umbilical hernia (Chronic) Condition: Stable - Instructions Diet, Activity, Other Instructions: Please see Dr. Allen on Sunday and schedule the outpatient hernia repair with Dr. Salguero once you obtain medical clearance from Dr. Stubbs. Please avoid strenuous activities such as lifting, running, etc. Come to the ER if you experience worsening abdominal pain, diarrhea, constipation, chest pain, shortness of breath. Referrals: Flroes Regalado [Primary Care Provider] - 2 Weeks Jj Arechiga MD [Staff Physician] - 1 Week Chris Salguero MD [Staff Physician] - 1 Week Disposition: HOME - Home Medications Comprehensive Discharge Medication List: Ambulatory Orders Aspirin [Baby Aspirin] 81 mg PO DAILY #0 tab.chew 03/16/12 Levothyroxine [Synthroid -] 88 mcg PO DAILY #0 tablet 03/16/12 Simvastatin [Zocor] 40 mg PO DAILY #0 tablet 03/16/12 Diltiazem Cd [Cardizem Cd -] 120 mg PO BID 09/23/15 Nadolol [Corgard -] 40 mg PO DAILY 01/04/17 Albuterol Sulfate [Proair Respiclick] 90 mcg IH QID PRN #1 aer.pow.ba 01/06/17 Fluticasone Propionate [Flovent Diskus] 50 mcg IH BID #1 blst.w.dev 01/06/17 Loratadine [Claritin -] 10 mg PO DAILY tablet 01/06/17 Metformin HCl [Glucophage -] 500 mg PO BID@0700,1630 #60 tablet 01/06/17 Pantoprazole Sodium [Protonix -] 20 mg PO DAILY #7 tablet.ec 01/06/17 Perindopril Erbumine 8 mg PO ASDIR 12/10/17 This patient is new to me today: Yes Date on this admission: 12/11/17 Emergency Visit: No Critical Care patient: No - Discharge Referral Referred to [facility] No
[2017-12-11] MEDS ORDERED: MOMETASONE FUROATE 110 MCG/IH INHALER IH SCH (22:00)
[2017-12-11] MEDS ORDERED: ATORVASTATIN CA 20 MG TABLET (FP) PO SCH (22:00)
--- NOTE | 2017-12-12 08:05 | EKG ---
Test Reason : Blood Pressure : / mmHG Vent. 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
== END 2017-12-11 19:22 | disposition home or self-care (01) ==
LOC: JER 14:40 → JERBED 12-11 00:23 → UNDOADMOB 12-11 01:26 → JERBED 12-11 01:26 → J7W 12-11 13:34
PROVIDERS: ADMIT Internal Medicine; ATTEND Internal Medicine
PROC: 3E033NZ Introduction of Analgesics, Hypnotics, Sedatives into Peripheral Vein, Percutaneous Approach (ICD-10-PCS; principal; 2017-12-11)
PROC: 3E033GC Introduction of Other Therapeutic Substance into Peripheral Vein, Percutaneous Approach (ICD-10-PCS; 2017-12-11)
PROC: 3E0337Z Introduction of Electrolytic and Water Balance Substance into Peripheral Vein, Percutaneous Approach (ICD-10-PCS; 2017-12-11)
DX: K43.6 Other and unspecified ventral hernia with obstruction, without gangrene (principal); I10 Essential (primary) hypertension; I25.10 Atherosclerotic heart disease of native coronary artery without angina pectoris; E78.5 Hyperlipidemia, unspecified; E11.9 Type 2 diabetes mellitus without complications; E03.9 Hypothyroidism, unspecified; J43.9 Emphysema, unspecified; Z95.1 Presence of aortocoronary bypass graft; Z79.82 Long term (current) use of aspirin; Z79.84 Long term (current) use of oral hypoglycemic drugs; Z90.81 Acquired absence of spleen
CPT/HCPCS: 36415; 74177-TC; 80053; 81003; 82962; 83735; 84100; 84443; 85025; 85610; 85730; 86850; 86900; 86901; 93005; 93010; 96361; 96374; 96375; 99285-25; G0378

== ENCOUNTER 2018-01-30 07:30 | Inpatient (IN) | payer OTHER ==
--- NOTE | 2018-01-25 09:05 | HP ---
DATE OF ADMISSION: 01/30/2018 DATE OF DICTATION: 01/08/2018 DATE OF SURGERY: 01/30/2018 BRIEF HISTORY: This is a 72-year-old female who in November of 2017, presented to the emergency room with excruciating lower abdominal pain. She was managed medically at that time, and her diagnosis was an acute incarceration of a chronic ventral hernia. The patient was to undergo repair during that hospitalization. However, she was not cleared from a cardiac standpoint. Since discharge, the patient has had no further bouts of sharp abdominal pain like that which landed her in the emergency room, but she still gets occasional bouts of discomfort in the lower abdomen. She has had no nausea, no vomiting. Her bowel habits have been unchanged as well. She has been worked up with a cardiac stress test at the medical center since discharge as well, and according to the patient (results not available to me), she passed the test and has no acute cardiac issues that would prohibit her from undergoing surgery. PAST MEDICAL HISTORY: Significant for hypertension, hyperlipidemia, coronary artery disease, diabetes, hypothyroidism, COPD, and emphysema. PAST SURGICAL HISTORY: Patient has had a portion of her pancreas resected, as well as a splenectomy (this was done through a half-chevron), she has had a cholecystectomy and an appendectomy and 2 groin hernia repairs. The appendectomy and groin hernias were done at age 1. She also underwent an exploratory laparotomy/ bowel resection. She has had a CABG. SOCIAL HISTORY: Patient does not smoke. She does not drink. ALLERGIES: She has no known allergies. MEDICATIONS: Synthroid, aspirin, Cardizem, Simvastatin, Flovent, Amitriptyline , metformin and Perinopril. PHYSICAL EXAMINATION: Abdomen: Patient has a half-chevron scar. She has a scar inferior at the umbilicus. Deep to that, on the inferior aspect of the umbilicus is a large mass that is approximately the size larger than a golf ball but smaller than a baseball. The mass is mildly tender on examination. There is no obvious defect or hernia appreciated in the chevron scar. She has an incision overlying McBurney point as well as 2 groin incisions without obvious hernias at those locations as well. IMPRESSION/PLAN: Chronically incarcerated ventral incisional hernia. This is a 72-year-old female who appears to have an incisional hernia from her previous surgery (I suspect some type of laparoscopic surgery). In any event, the patient is symptomatic from this hernia, and I would recommend a repair. At the time of surgery, if this can be repaired with mesh without a component separation, it will be done in that way. However, if the tissue planes are so thinned out that the patient requires a larger piece of mesh for reinforcement, then she may require a component separation. This can only be determined at the time of surgery. The indications, alternatives, and complications have been discussed at length. All questions have been answered. We will plan for an open repair of this hernia, possible component separation. Harjit BUNDY [id number] cc: Flores Regalado MD MTDD
[2018-01-29 15:42] VITALS: BMI 27.1
[2018-01-30] MEDS ORDERED: DEXAMETHASONE SOD PHOSPHATE 4 MG/1 ML VIAL ONE ×2 (07:44→11:34)
[2018-01-30] MEDS ORDERED: BUPIVACAINE HCL/PF 0.25% (2.5MG/ML) 10 ML VIAL ONE (07:45)
[2018-01-30] MEDS ORDERED: ceFAZolin SODIUM 1 GM VIAL ONE (08:35)
[2018-01-30] MEDS ORDERED: LACTATED RINGERS SOLUTION 1,000 ML IV SCH (09:15)
[2018-01-30] MEDS ORDERED: ONDANSETRON 4 MG/2 ML VIAL IVPUSH PRN ×2 (09:15→12:05)
[2018-01-30] MEDS ORDERED: PROPOFOL 20 ML ONE (09:23)
[2018-01-30] MEDS ORDERED: ceFAZolin SODIUM 1 GM VIAL IVPB ONE (09:31)
[2018-01-30] MEDS ORDERED: ROCURONIUM BROMIDE 50 MG/5 ML VIAL ONE (10:02)
[2018-01-30] MEDS ORDERED: ePHEDrine SULFATE 50 MG/1 ML AMPULE ONE (10:04)
[2018-01-30] MEDS ORDERED: DEXAMETHASONE SOD PHOSPHATE 4 MG/1 ML VIAL IVPUSH ONE (10:10)
[2018-01-30] MEDS ORDERED: BUPIVACAINE HCL/PF 0.25% (2.5MG/ML) 10 ML VIAL IJ ONE (10:10)
[2018-01-30] MEDS ORDERED: GLYCOPYRROLATE 0.2 MG/1 ML VIAL ONE (11:34)
[2018-01-30] MEDS ORDERED: ONDANSETRON 4 MG/2 ML VIAL ONE (11:34)
[2018-01-30] MEDS ORDERED: NEOSTIGMINE METHYLSULFATE 0.5 MG/ML - 10 ML MDV ONE (11:34)
[2018-01-30] MEDS: INSULIN SLIDING SCALE (NOVOLOG) 1 VIAL SQ SCH ×2 (11:34→17:49)
[2018-01-30] MEDS ORDERED: LIDOCAINE HCL/PF 2% SDV 5ML VIAL ONE (11:34)
[2018-01-30] MEDS ORDERED: morphine CARPU-JECT 4 MG/1 ML DISP.SYRIN IVPB PRN (12:05)
[2018-01-30] MEDS ORDERED: ACETAMINOPHEN 325 MG TABLET (FP) PO PRN (12:05)
[2018-01-30] MEDS ORDERED: ALBUTEROL SO4 18 GM HFA INHALER IH PRN (12:10)
--- NOTE | 2018-01-30 13:03 | CONSULT ---
Consult Consult Specialty:: medicine Referred by:: surgery dr Kong Reason for Consultation:: postop f/u - History of Present Illness Chief Complaint: 72 YOF HTN ASHD h/o ID h/o splenectomy, DM, OA DJD, abdominal hernia, seen for preop eval outpt by me, now s/p abdominal hernia repair / surgery History of Present Illness: see above pt in bed awake alert has abdominal pain but is on pain meds no CP/SOB seen by cardiology for preop eval - History Source History Provided By: Patient Limitations to Obtaining History: No Limitations - Past Medical History Cardio/Vascular: Yes: CAD, HTN, Hyperlipdemia, ID Pulmonary: Yes: COPD Infectious Disease: Yes: Herpes Zoster Musculoskeletal: Yes: Osteoarthritis Endocrine: Yes: Hypothyroidism - Past Surgical History Past Surgical History: Yes: CABG - Alcohol/Substance Use Hx Alcohol Use: Yes (social) History of Substance Use: reports: None - Smoking History Smoking history: Never smoked Have you smoked in the past 12 months: No Aproximately how many cigarettes per day: 0 If you are a former smoker, when did you quit?: [place] 1992 - Social History ADL: Independent History of Recent Travel: No Home Medications - Allergies Allergies/Adverse Reactions: Allergies Allergy/AdvReac Type Severity Reaction Status Date / Time No Known Allergies Allergy Verified 01/29/18 15:25 - Home Medications Home Medications: Ambulatory Orders Aspirin [Baby Aspirin] 81 mg PO DAILY #0 tab.chew 03/16/12 Levothyroxine [Synthroid -] 88 mcg PO DAILY #0 tablet 03/16/12 Diltiazem Cd [Cardizem Cd -] 120 mg PO BID 09/23/15 Albuterol Sulfate [Proair Respiclick] 90 mcg IH QID PRN #1 aer.pow.ba 01/06/17 Fluticasone Propionate [Flovent Diskus] 50 mcg IH BID #1 blst.w.dev 01/06/17 metFORMIN HCL [Glucophage -] 500 mg PO BID@0700,1630 #60 tablet 01/06/17 Perindopril Erbumine 8 mg PO DAILY 12/10/17 Simvastatin [Zocor] 20 mg PO DAILY 01/29/18 Oxycodone HCl/Acetaminophen [Percocet 5-325 mg Tablet] 1 tab PO Q4H PRN #42 tablet MDD 6 01/30/18 Family Disease History - Family Disease History Family History: Unremarkable Review of Systems - Review of Systems Constitutional: denies: Chills, Fever Eyes: denies: Blurred Vision, Double Vision HENT: denies: Difficult Swallowing, Epistaxis Neck: denies: Stiffness, Tenderness Cardiovascular: denies: Chest Pain, Shortness of Breath Respiratory: denies: Cough, SOB Gastrointestinal: reports: Abdominal Pain, Nausea. denies: Vomiting Genitourinary: denies: Flank Pain, Hematuria Musculoskeletal: denies: Back Pain, Muscle Pain Neurological: denies: Change in LOC, Change in Speech, Confusion, Seizure, Syncope Endocrine: denies: Excessive Sweating, Flushing Hematology/Lymphatic: denies: Easily Bruised, Excessive Bleeding Psychiatric: denies: Altered Sleep Pattern, Anxiety, Depression, Suicidal Physical Exam Vital Signs: Vital Signs Temperature 97.7 F 01/30/18 11:57 Pulse Rate 91 H 01/30/18 11:57 Respiratory Rate 20 01/30/18 11:57 Blood Pressure 118/67 01/30/18 11:57 O2 Sat by Pulse Oximetry (%) 100 01/30/18 11:57 Constitutional: Yes: No Distress, Calm Eyes: Yes: Conjunctiva Clear HENT: Yes: Atraumatic Neck: Yes: Supple Cardiovascular: Yes: Regular Rate and Rhythm Respiratory: Yes: CTA Bilaterally Gastrointestinal: Yes: Soft, Tenderness (postop with palpation). No: Distention Renal/: No: CVA Tenderness - Left, CVA Tenderness - Right, Hematuria Musculoskeletal: No: Joint Stiffness, Joint Swelling Extremities: No: Cold, Cool, Cyanosis Edema: No Integumentary: No: Rash, Venous Stasis Changes Neurological: Yes: WNL, Alert ...Motor Strength: WNL Psychiatric: Yes: WNL, Alert. No: Agitated Imaging - Results Other: Report Reviewed Assessment/Plan 72 yof HTN ASHD h/o ID h/o splenectomy, DM, OA, now s/p abdominal hernia repair pain meds DVT pfx continue meds f/u with surgery d/w pt and staff
[2018-01-30] MEDS: D5-1/2NS+20 MEQ KCL - 20 MEQ/1,000 ML INFUS.BAG IV SCH (14:30)
--- NOTE | 2018-01-30 14:36 | OP ---
DATE OF OPERATION: 01/30/2018 PREOPERATIVE DIAGNOSIS: Complex chronically incarcerated ventral incisional hernia. POSTOPERATIVE DIAGNOSIS: Complex chronically incarcerated ventral incisional hernia. PROCEDURE: Open repair of complex chronically incarcerated ventral incisional hernia with mesh, bilateral component separation, partial omentectomy, and 15-cm intermediate wound closure. SURGEON: Kenroy Kong MD HEAD OF TRAINING AND DEVELOPMENT: Wesley Cao MD ANESTHESIA: Zabrina Ritter MD (general). ESTIMATED BLOOD LOSS: Minimal. SPECIMEN: Portion of omentum. INDICATION FOR PROCEDURE: This is a 72-year-old female who presented to [facility] in November of this year with acute abdominal pain. At that time, she was noted to have an acute abdominal incarceration on top of her chronically incarcerated hernia. She was managed medically and the hernia reduced. She was not cleared cardiac patino and therefore underwent complete cardiac workup prior to this surgery. She is now here for definitive surgical management. Patient has a very complex abdominal wall. She underwent a splenectomy and partial pancreatectomy in the past through a chevron incision. She has also had a cholecystectomy, appendectomy and 2 groin hernia repairs. The patient also had a previous hernia repair from the old surgery she has had and a portion of the muscle was used for the repair as well as mesh. Clearly, this is a very complex abdominal wall and the reconstruction here with the repair will be complex as well. Patient identified and appropriately positioned on the operating room table. After placement of general anesthesia, the abdomen prepped and draped in the usual sterile fashion with ChloraPrep. A midline incision was made and deepened through subcutaneous tissue. This was taken overlying the hernia and the hernia identified in the subcutaneous tissue and dissected free from the subcutaneous tissue with blunt dissection. There were 2 fascial defects noted, a larger fascial defect followed by a smaller fascial defect north of the largest 1. The large 1 had a defect of over 4 cm in diameter and the smaller defect was approximately 2 cm in diameter. There was a small bridge between the 2 of approximately 1 cm. The bridge was subsequently divided to create 1 large defect. The patient's hernia sac was opened and in doing so it was obvious she had chronically incarcerated omentum. The omentum was unable to be reduced and a portion of the omentum was stuck to the hernia sac wall, making this a slider. The omentum was sharply off the sac and serially clamped, divided, tied and handed off as specimen, a portion of omentum. The hernia sac was then excised as well. The rectus muscle on the right identified. The posterior rectus sheath was subsequently scored and the posterior rectus space was entered using blunt dissection and going out laterally the perforating vessels identified. The fascia just medial to the perforating vessels was then divided sharply and the myofascial release was performed from the defect up to 4 cm above and below the defect. The myofascial separation allowed separation of the transversus muscle from the rectus as well as the obliques. Once the separation on the right side was completed, a similar approach on the left was performed. On the left side, the patient had no rectus in the upper abdomen. The fascia on the right side was picked up below the umbilicus and at this point the rectus fascia posterior sheath was subsequently divided and again the space was developed bluntly laterally and just at the lateral junction of the perforating vessels the fascia was then subsequently divided sharply. This allowed movement of the transversus medially and obliques laterally as well as the rectus. The space was then taken north and as we went north there was obviously the posterior sheath was essentially nonexistent, but this was from what was the fascial scarring and previous old mesh repair and this was left and used as the posterior sheath. The posterior sheath was then reapproximated with a running 2-0 V-Loc suture. A large 30 x 30 piece of Versatex mesh was used for the operative repair along with a 16 x 20 piece of DELFINO Bio. The 2 pieces were sewn together. The DELFINO Bio was placed on the transversus side and the Versatex was placed in the retrorectus location. The mesh was fanned out laterally, superiorly and inferiorly and then was subsequently anchored into position with the AbsorbaTack. The wound irrigated. The operative field examined and noted to be hemostatic. The mesh irrigated with approximately 2 L of saline. The rectus sheath was then injected with a total of 40 mL of 0.5% Marcaine with 4 mg of Decadron. This rectus sheath block was given by the 1st assistant manager bilingual. The midline fascia now reapproximated with interrupted No. 1 PDS suture. The 10 flat J-P placed, brought out through a separate stab incision and the skin closed with judah followed by Dermabond. At the conclusion of this case, sponge and needle counts were correct. ATTESTATION: Brief operative note handwritten on the preprinted form. [facility] queried prior to giving narcotics. Harjit BUNDY [id number] cc: MD Jj Donaldson MD
[2018-01-30] MEDS: oxyCODONE HCL 5 MG TABLET PO PRN (17:50)
[2018-01-30] MEDS: metFORMIN HCL 500 MG TABLET (FP) PO SCH (17:52)
[2018-01-30] MEDS ORDERED: morphine SULFATE 4 MG/ML VIAL IVPB PRN (20:49)
[2018-01-30] MEDS ORDERED: INSULIN (NOVOLOG) ASPART 100 UNITS/ML 10ML VIAL ONE (21:51)
[2018-01-30] MEDS ORDERED: PATIENT'S OWN MEDICATION (NON-FORMULARY) (Fluticasone Propionate [Flovent Diskus] 50 MCG) IH SCH (22:00)
[2018-01-31] MEDS: oxyCODONE HCL 5 MG TABLET PO PRN ×2 (01:39→10:20)
[2018-01-31] MEDS: D5-1/2NS+20 MEQ KCL - 20 MEQ/1,000 ML INFUS.BAG IV SCH (01:40)
[2018-01-31] MEDS: INSULIN SLIDING SCALE (NOVOLOG) 1 VIAL SQ SCH ×2 (06:27→11:58)
[2018-01-31 06:45] VITALS: BP 108/64; PULSE 81; TEMP 98.4
[2018-01-31] MEDS: metFORMIN HCL 500 MG TABLET (FP) PO SCH (06:51)
[2018-01-31] MEDS ORDERED: LEVOTHYROXINE NA 88 MCG TABLET (FP) PO SCH (07:00)
--- NOTE | 2018-01-31 08:55 | PN ---
Progress Note (short form) - Note Progress Note: S/p Complex ventral hernia repair under GA uneventful.Patient stable and c/o pain score of 5-6/10.So put patient on Caldolor in addition to oxycodone.No any anesthesia related problem.Patient Dc from the anesthesia care.
--- NOTE | 2018-01-31 09:01 | PN ---
Progress Note, Physician Chief Complaint: in bed awake alert doing better less pain, passed gas but no BM, will start diet OOB with PT rehab d/w pt and niece at bedside - Current Medication List Current Medications: Active Medications Acetaminophen (Tylenol -) 650 mg PO Q4H PRN PRN Reason: FEVER Albuterol Sulfate (Ventolin Hfa Inhaler -) 2 puff IH Q4H PRN PRN Reason: SHORT OF BREATH/WHEEZING Aspirin (Asa -) 81 mg PO DAILY [facility] Atorvastatin Calcium (Lipitor -) 10 mg PO HS [facility] Diltiazem HCl (Cardizem Cd -) 120 mg PO BID [facility] Last Admin: 01/30/18 21:06 Dose: 120 mg Enoxaparin Sodium (Lovenox -) 40 mg SQ DAILY [facility] Potassium Chloride/Dextrose/Sod Cl (D5-1/2ns+20 Meq Kcl -) 20 meq in 1,000 mls @ 83 mls/hr IV ASDIR [facility] Last Admin: 01/31/18 01:40 Dose: 83 mls/hr Ibuprofen (Caldolor Injection -) 600 mg IVPB Q8H PRN PRN Reason: FEVER Insulin Aspart (Novolog Vial Sliding Scale -) 1 vial SQ ACHS [facility] PRN Reason: Protocol Last Admin: 01/31/18 06:27 Dose: 2 units Levothyroxine Sodium (Synthroid -) 88 mcg PO DAILY@0700 [facility] Last Admin: 01/31/18 06:27 Dose: 88 mcg Metformin HCl (Glucophage -) 500 mg PO BID@0700,1630 [facility] Last Admin: 01/31/18 06:51 Dose: 500 mg Morphine Sulfate (Morphine Sulfate) 4 mg IVPB Q3H PRN PRN Reason: PAIN LEVEL 7 - 10 Non-Formulary Medication (Fluticasone Propionate [Flovent Diskus]) 50 mcg IH BID [facility] Non-Formulary Medication (Perindopril Erbumine [Perindopril Erbumine]) 8 mg PO DAILY [facility] Ondansetron HCl (Zofran Injection) 4 mg IVPUSH Q6H PRN PRN Reason: NAUSEA AND/OR VOMITING Ondansetron HCl (Zofran Injection) 4 mg IVPUSH Q6H PRN PRN Reason: NAUSEA Oxycodone HCl (Roxicodone -) 7.5 mg PO Q4H PRN PRN Reason: PAIN LEVEL 4 - 6 Last Admin: 01/31/18 01:39 Dose: 7.5 mg Pantoprazole Sodium (Protonix Iv) 40 mg IVPUSH DAILY QING - Objective Vital Signs: Vital Signs Temperature 98.4 F 01/31/18 06:44 Pulse Rate 81 01/31/18 06:44 Respiratory Rate 20 01/31/18 06:44 Blood Pressure 108/64 01/31/18 06:44 O2 Sat by Pulse Oximetry (%) 98 01/30/18 14:10 Constitutional: Yes: No Distress, Calm Eyes: Yes: Conjunctiva Clear HENT: Yes: Atraumatic Neck: Yes: Supple Cardiovascular: Yes: Regular Rate and Rhythm Respiratory: Yes: CTA Bilaterally Gastrointestinal: Yes: Soft. No: Distention, Tenderness Genitourinary: No: CVA Tenderness - Left, CVA Tenderness - Right Musculoskeletal: No: Joint Stiffness, Joint Swelling Extremities: No: Cold, Cool, Cyanosis Edema: No Integumentary: No: Rash, Venous Stasis Changes Neurological: Yes: WNL, Alert ...Motor Strength: WNL Psychiatric: Yes: WNL, Alert. No: Agitated, Suicidal Ideation - ....Imaging Other: Report Reviewed Assessment/Plan 72 yof HTN ASHD h/o ID h/o splenectomy, DM, OA, now s/p abdominal hernia repair pain meds prn DVT pfx continue meds f/u with surgery, wound care per surgery PT rehab for ambulation OOB falls PFX d/w pt and staff, d/w pt's niece if able to tolerate po diet to be DC home later today, adviased f/u PCP, cardiology, GI and surgery in 1-2 weeks after DC
[2018-01-31] MEDS ORDERED: IBUPROFEN 800 MG/8 ML IJ IVPB PRN (09:31)
[2018-01-31] MEDS ORDERED: MORPHINE SULFATE 10 MG/1 ML *VIAL IVPUSH PRN (09:33)
[2018-01-31] MEDS ORDERED: PANTOPRAZOLE SODIUM 40 MG VIAL IVPUSH SCH (10:00)
[2018-01-31] MEDS ORDERED: PERINDOPRIL ERBUMINE PO SCH (10:00)
[2018-01-31] MEDS ORDERED: ASPIRIN 81 MG CHEWABLE TABLETS PO SCH (10:00)
[2018-01-31] MEDS ORDERED: ENOXAPARIN NA (PORCINE) 40 MG/0.4 ML DISP.SYRIN SQ SCH (10:00)
--- NOTE | 2018-01-31 14:48 | DS ---
DATE OF ADMISSION: 01/30/2018 DATE OF DISCHARGE: 01/31/2018 ADMITTING DIAGNOSES: Complex incarcerated incisional hernia with preexisting diabetes, hypertension, coronary artery disease. DISCHARGE DIAGNOSES: Complex incarcerated incisional hernia with preexisting diabetes, hypertension, coronary artery disease. BRIEF HISTORY: This is a 72-year-old female, presented to [facility] for surgical management of a complex incarcerated incisional hernia. She underwent repair of the hernia with mesh utilizing component separation and myofascial release. Please reference Dr. Kenroy Kong's operative note for further details. She is being discharged home today, January 31, tolerating diet. She is voiding and ambulating. She will go home with a prescription for Percocet. She will resume her usual home medications. She will empty her William-Kelley daily and record the amount. She will only sponge bathe. She will not lift anything more than 20 pounds. She is okay to walk and okay to climb stairs. At the time of discharge, her incision is clean. There is no sign of erythema. Her William-Kelley drain is serosanguineous. She has no ecchymosis and no sign of recurrence. DO TERRY MOCTEZUMA/[id number]
--- NOTE | 2018-01-31 17:52 | PATH ---
Surgical Pathology Report Patient Name: KEV UP Med. Rec. #: [id number] /Age/Gender: 1945 (Age: 72) / F Account: [id number] Location: [facility] MED/SURG Taken: 01/30/2018 Received: 01/30/2018 Reported: 01/31/2018 Physicians: Kenroy Kong Specimen(s) Received PORTION OF OMENTUM Clinical History Complex ventral hernia, abdominal pain Final Diagnosis PORTION OF OMENTUM, COMPLEX VENTRAL HERNIA REPAIR: FIBROMEMBRANOUS AND OMENTAL ADIPOSE TISSUE CONSISTENT WITH HERNIA SAC AND CONTENTS. Electronically Signed Hazel Berger M.D. Gross Description Received in formalin labeled "portion of omentum," is a 6.0 x 5.3 x 2.2 cm portion of yellow, lobulated adipose tissue with attached fibromembranous tissue. Pole Framer Machine sections are submitted in 2 cassettes. /01/30/2018 saudi/01/30/2018
[2018-01-31] MEDS ORDERED: ATORVASTATIN CA 10 MG TABLET (FP) PO SCH (22:00)
== END 2018-01-31 14:15 | disposition home or self-care (01) | DRG 355 ==
LOC: JASU-SURG 07:30 → JSAMEDAYSX 12:05 → J8W 15:05
PROVIDERS: ADMIT Surgery; ATTEND Surgery
PROC: 0DBU0ZZ Excision of Omentum, Open Approach (ICD-10-PCS; 2018-01-30)
PROC: 0WUF0JZ Supplement Abdominal Wall with Synthetic Substitute, Open Approach (ICD-10-PCS; principal; 2018-01-30 09:00)
DX: K43.0 Incisional hernia with obstruction, without gangrene (principal); E78.5 Hyperlipidemia, unspecified; I25.10 Atherosclerotic heart disease of native coronary artery without angina pectoris; I10 Essential (primary) hypertension; E11.9 Type 2 diabetes mellitus without complications; E03.9 Hypothyroidism, unspecified; J44.9 Chronic obstructive pulmonary disease, unspecified; Z79.84 Long term (current) use of oral hypoglycemic drugs; Z95.1 Presence of aortocoronary bypass graft; I25.2 Old myocardial infarction
CPT/HCPCS: 82962; 88302-TC; 94010; 94760

== ENCOUNTER 2020-01-13 16:36 | Inpatient (IN) | payer OTHER ==
[2020-01-13 16:45] VITALS: BMI 27.8
--- NOTE | 2020-01-13 16:46 | PDOC ---
Rapid Medical Evaluation Time Seen by Provider: 01/13/20 16:40 Medical Evaluation: Allergies Allergy/AdvReac Type Severity Reaction Status Date / Time No Known Allergies Allergy Verified 01/29/18 15:25 01/13/20 16:42 Pt c/o: BRB from rectum, was constipated from sx taking stool softeners, had coronary stent placed by dr voss on sat at [facility], on brilenta on asa, initially black this am Pt on brief exam: vss, pt ordered for:labs, stool guaic, ekg, pt to proceed to the ED Discharge Disposition - Diagnosis Bloody stool, GI bleed, Elevated troponin - Discharge Dispostion Condition at time of disposition: Guarded - Referrals - Patient Instructions - Post Discharge Activity
--- NOTE | 2020-01-13 17:02 | PDOC ---
History of Present Illness - General Chief Complaint: Rectal Bleed Stated Complaint: RECTAL BLEEDING Time Seen by Provider: 01/13/20 16:40 - History of Present Illness Initial Comments: The patient is a 74F w/ a history of HTN, HLD, CAD s/p CABG, NIDDM, Hypothyroidism, COPD, s/p stent placement at [facility] 4 days ago on Brilinta and ASA who presents for evaluation of BRBPR. She states she has a bloody BM this AM and two episodes of passing gross blood and clot afterwards. She reports feeling slightly short of breath since yesterday. She reports the sensation of needing to have a BM but denies abd pain She denies fevers/chills, TREVIÑO, vision changes, dizziness, chest pain, dysuria, hematuria 01/13/20 17:02 Past History - Past Medical History Allergies/Adverse Reactions: Allergies Allergy/AdvReac Type Severity Reaction Status Date / Time No Known Allergies Allergy Verified 01/13/20 16:45 Home Medications: Ambulatory Orders Aspirin [Baby Aspirin] 81 mg PO DAILY #0 tab.chew 03/16/12 Levothyroxine [Synthroid -] 88 mcg PO DAILY #0 tablet 03/16/12 Diltiazem Cd [Cardizem Cd -] 120 mg PO BID 09/23/15 Albuterol Sulfate [Proair Respiclick] 90 mcg IH QID PRN #1 aer.pow.ba 01/06/17 Fluticasone Propionate [Flovent Diskus] 50 mcg IH BID #1 blst.w.dev 01/06/17 metFORMIN HCL [Glucophage -] 500 mg PO BID@0700,1630 #60 tablet 01/06/17 Perindopril Erbumine 8 mg PO DAILY 12/10/17 Simvastatin [Zocor] 20 mg PO DAILY 01/29/18 Oxycodone HCl/Acetaminophen [Percocet 5-325 mg Tablet] 1 tab PO Q4H PRN #42 tablet MDD 6 01/30/18 Anemia: No Asthma: No Cancer: No Cardiac Disorders: Yes (cabg 1992, Stent 12/2019) CVA: No COPD: Yes CHF: No Dementia: No Diabetes: Yes GI Disorders: Yes Disorders: No HTN: Yes Hypercholesterolemia: Yes Liver Disease: No Seizures: No Thyroid Disease: Yes - Surgical History Abdominal Surgery: Yes (abd hernia repair, spleen) Appendectomy: Yes Cardiac Surgery: Yes (triple bypass 1993, Stent) Cholecystectomy: Yes Lung Surgery: No Neurologic Surgery: No Orthopedic Surgery: No - Immunization History Immunization Up to Date: Yes - Psycho Social/Smoking Cessation Hx Smoking Status: Yes Smoking History: Never smoked Have you smoked in the past 12 months: No Number of Cigarettes Smoked Daily: 0 If you are a former smoker, when did you quit?: [place] 1992 Cigars Per Day: 10 Information on smoking cessation initiated: No Hx Alcohol Use: No Drug/Substance Use Hx: No Substance Use Type: Alcohol Hx Substance Use Treatment: No Review of Systems - Review of Systems Able to Perform ROS?: Yes Comments:: GENERAL/CONSTITUTIONAL: No fever or chills. No weakness HEAD, EYES, EARS, NOSE AND THROAT: No change in vision. No change in hearing. No sore throat CARDIOVASCULAR: No chest pain RESPIRATORY: Denies cough, hemoptysis GASTROINTESTINAL: +BRBPR; denies N/V GENITOURINARY: No dysuria, frequency, or change in urination MUSCULOSKELETAL: No joint or muscle swelling or pain. No neck or back pain SKIN: No rash NEUROLOGIC: No headache, loss of consciousness, or change in strength/sensation ENDOCRINE: No increased thirst. No abnormal weight change HEMATOLOGIC/LYMPHATIC: +Brilinta/ASA ALLERGIC/IMMUNOLOGIC: No hives or skin allergy 01/13/20 17:01 Is the patient limited Spanish proficient: No *Physical Exam - Vital Signs Last Vital Signs Temp Pulse Resp BP Pulse Ox 97.7 F 112 H 19 118/74 99 01/13/20 16:41 01/13/20 16:41 01/13/20 16:41 01/13/20 16:41 01/13/20 16:41 - Physical Exam GENERAL: Awake, alert, and oriented to person/place/time, in no acute distress HEAD: No signs of trauma, normocephalic, atraumatic EYES: PERRLA, EOMI, sclera anicteric, conjunctiva clear ENT: Hearing grossly normal, nares patent, oropharynx clear without exudates. Moist mucosa LUNGS: No distress, speaks in full sentences, clear to auscultation bilaterally HEART: Regular rate and rhythm, normal S1 and S2, no murmurs appreciated, peripheral pulses normal and equal bilaterally ABDOMEN: Soft, nontender, normoactive bowel sounds. No guarding, no rebound. No masses_ EXTREMITIES: Normal inspection, Normal range of motion, no edema. No clubbing or cyanosis_ NEUROLOGICAL: Cranial nerves II through XII grossly intact. Normal speech, normal gait, no focal sensorimotor deficits _ SKIN: Warm, Dry 01/13/20 17:02 ED Treatment Course - LABORATORY CBC & Chemistry Diagram: 01/13/20 21:24 01/13/20 17:00 Medical Decision Making - Medical Decision Making The patient is a 74F w/ a history of HTN, HLD, CAD s/p CABG, NIDDM, Hypothyroidism, COPD, s/p stent placement at [facility] 4 days ago on Brilinta and ASA who presents for evaluation of BRBPR. ED Course Labs sent FOBT ECG CT A&P w/ IV contrast IVF ECG w/ sinus tachycardia; HR 101; QTc 453; no axis deviation; no EDUARDO Hgb 12.2, at baseline, will recheck at 2100 FOBT + No leukocytosis Lytes unremarkable BUN slightly elevated LFTs unremarkable Case discussed with Dr. Arechiga, hold Brilinta [facility], will evaluate the pt Case discussed with Dr. Perez, no recommendations at this time ICU consulted, will evaluate pt Case signed out to Dr. Flores Regalado 01/13/20 18:43 Troponinemia noted, pt w/o chest pain Pt s/p AM Brilinta and ASA 81mg today 01/13/20 20:43 Repeat CBC sent/pending 01/13/20 21:39 Repeat Hgb 11, will not transfuse at this time Pt reports additional bloody BM w/ clot Pt denies dizziness, CP, vision changes 01/13/20 21:59 Discharge - Discharge Information Problems reviewed: Yes Clinical Impression/Diagnosis: Bloody stool, Elevated troponin GI bleed Qualifiers: GI bleed type/associated pathology: unspecified gastrointestinal hemorrhage type Qualified Code(s): K92.2 - Gastrointestinal hemorrhage, unspecified Condition: Guarded - Admission Yes - Follow up/Referral - Patient Discharge Instructions - Post Discharge Activity
--- NOTE | 2020-01-13 17:08 | PDOC ---
Attending Attestation - Resident Resident Name: Nishant Lundberg - ED Attending Attestation I have performed the following: I have examined & evaluated the patient, The case was reviewed & discussed with the resident, I agree w/resident's findings & plan, Exceptions are as noted - HPI HPI: 01/13/20 17:08 74-year-old female on Brilinta and aspirin had cardiac stents placed on Sunday [facility] and now has bright red blood per rectum <Aaron Arellano - Last Filed: 01/13/20 17:08> - ED Attending Attestation I have performed the following: I have examined & evaluated the patient, The case was reviewed & discussed with the resident, I agree w/resident's findings & plan, Exceptions are as noted - Physicial Exam PE: 01/18/20 21:10 PLEASE SEE THE ORIGINAL CHART, this is a duplicate - Medical Decision Making 01/18/20 21:13 duplicate chart/original started by Dr Arellano <Lora Dennis - Last Filed: 01/18/20 21:15>
[2020-01-13 17:36] LABS: BASO % 0.6 % (0-2.0); EOS % 5.2 % (0-4.5); HEMATOCRIT 36.3 % (32.4-45.2); HEMOGLOBIN 12.2 GM/dL (10.7-15.3); LYMPH % 29.6 % (8-40); MCH 31.6 pg (25.7-33.7); MCHC 33.5 g/dl (32.0-36.0); MEAN CELL VOLUME 94.3 fl (80-96); MEAN PLT VOLUME 9.7 fl (7.5-11.1); MONO % 12.3 % (3.8-10.2); NEUT % 52.3 % (42.8-82.8); PLATELET COUNT 251 K/MM3 (134-434); RBC 3.85 M/mm3 (3.60-5.2); RDW 13.4 % (11.6-15.6); WHITE BLOOD COUNT 10.7 K/mm3 (4.0-10.0)
[2020-01-13] MEDS ORDERED: LACTATED RINGERS SOLUTION 1000 ML INFUS.BAG IV ONE ×2 (17:37→18:41)
[2020-01-13 17:58] LABS: ALBUMIN 3.8 g/dl (3.4-5.0); BILIRUBIN,TOTAL 1.1 mg/dL (0.2-1); BLOOD UREA NITROGEN 19.5 mg/dL (7-18); CALCIUM 10.6 mg/dL (8.5-10.1); MAGNESIUM 1.6 mg/dL (1.8-2.4); POTASSIUM 4.6 mmol/L (3.5-5.1); TOT PROT 6.6 g/dl (6.4-8.2)
[2020-01-13 18:14] LABS: INR 1.03 (0.83-1.09); PROTHROMBIN TIME (PATIENT) 12.2 SEC (9.7-13.0)
[2020-01-13 18:16] LABS: ACTIVATED PTT 30.7 SECONDS (25.2-36.5)
--- NOTE | 2020-01-13 18:48 | CONSULT ---
Consultation: REQUESTING PROVIDER: CONSULT REQUEST: We have been asked to medically evaluate this patient for GIB, requiring HD monitoring HISTORY OF PRESENT ILLNESS: 74F w/ pmh of HTN, dyslipidemia, hypothyroidism, COPD(former tobacco), h/o psuedocyst sp Whipple(early ), sp splenectomy, ventral hernia repair, chronic constipation, h/o internal hemorrhoids, h/o diverticulosis, CAD(s/p CABG ~1992, s/p RCA stent([facility], 01/09/20)) presents to [facility]ED with complaint of bloody bowel movements x1d. At night prior to presentation had black stool then at morning prior to presentation had two episodes of dark red bloody stools then dark red stools with clots. Was recently started on Brillinta(~01/11/20) after getting a cardiac stent(Blas Guardado [phone]; 01/09/20) which was done emergently d/t a 90% RCA stenosis. Has chronic mild intermittent Left- sided abdominal pain since her abdominal surgery. Denies dizziness, fatigue, palpitations, CP, SOB, NV. Does not take NSAIDs on a regular basis. Had a colonoscopy([facility] ~ 5ys prior) that pt recalls was notable for polyps and diverticulosis. Had a EGD(?EUS) in early for pancreatic mass w/u, does not think she had any dx of ulcers. REVIEW OF SYSTEMS: CONSTITUTIONAL: Absent: fever, chills, diaphoresis, generalized weakness, malaise, loss of appetite, weight change HEENT: Absent: rhinorrhea, nasal congestion, throat pain, throat swelling, difficulty swallowing, mouth swelling, ear pain, eye pain, visual changes CARDIOVASCULAR: Absent: chest pain, syncope, palpitations, irregular heart rate, lightheadedness , peripheral edema RESPIRATORY: Absent: cough, shortness of breath, dyspnea with exertion, orthopnea, wheezing, stridor, hemoptysis GASTROINTESTINAL: chronic constipation, bloody bowel movements(black, then clots ), mild chronic intermittent left-sided abd pain Absent: abdominal distension, nausea, vomiting, diarrhea GENITOURINARY: Absent: dysuria, frequency, urgency, hesitancy, hematuria, flank pain, genital pain MUSCULOSKELETAL: Absent: myalgia, arthralgia, joint swelling, back pain, neck pain HEMATOLOGIC/IMMUNOLOGIC: easy bruising since starting Brillinta Absent: easy bruising, lymphadenopathy, frequent infections ENDOCRINE: Absent: unexplained weight gain, unexplained weight loss, heat intolerance, cold intolerance NEUROLOGIC: Absent: headache, focal weakness or paresthesias, dizziness, unsteady gait, seizure, mental status changes, bladder or bowel incontinence PSYCHIATRIC: Absent: anxiety, depression, suicidal or homicidal ideation, hallucinations. PHYSICAL EXAMINATION Vital Signs - 24 hr 01/13/20 16:41 Temperature 97.7 F Pulse Rate 112 H Respiratory 19 Rate Blood Pressure 118/74 O2 Sat by Pulse 99 Oximetry (%) GENERAL: Awake, alert, and fully oriented, in no acute distress. HEAD: Normal with no signs of trauma. EYES: sclera anicteric and without pallor, conjunctiva clear. No lid lag. EARS, NOSE, THROAT: Ears normal, nares patent, oropharynx clear without exudates. Moist mucous membranes. NECK: Normal range of motion, supple without lymphadenopathy, JVD, or masses. LUNGS: Breath sounds equal, clear to auscultation bilaterally. No wheezes, and no crackles. No accessory muscle use. Breathing comfortably on RA HEART: Regular rate and rhythm, normal S1 and S2 without murmur, rub or gallop. HR 90s ABDOMEN: Well-healed midline abd scar. Soft, not distended, normoactive bowel sounds, mild TTP of left romina-abd; no guarding, no rebound. RECTAL: no external anal lesions, normal rectal tone, no palpable stool in rectal vault, light pink mucus on glove MUSCULOSKELETAL:normal gross movement of all extremities UPPER EXTREMITIES: 2+ pulses, warm, well-perfused. No cyanosis. No clubbing. Cap refill <2 seconds. No peripheral edema. LOWER EXTREMITIES: 2+ pulses, warm, well-perfused. No calf tenderness. No peripheral edema. NEUROLOGICAL: Cranial nerves II-XII intact. Normal speech. Normal gait. PSYCHIATRIC: Cooperative. Good eye contact. Appropriate mood and affect. SKIN: Warm, dry, normal turgor, no rashes or lesions noted. Laboratory Results - last 24 hr 01/13/20 01/13/20 01/13/20 17:00 17:00 17:00 WBC 10.7 H RBC 3.85 Hgb 12.2 Hct 36.3 MCV 94.3 MCH 31.6 MCHC 33.5 RDW 13.4 Plt Count 251 MPV 9.7 Absolute Neuts (auto) 5.6 Neutrophils % 52.3 Lymphocytes % 29.6 Monocytes % 12.3 H Eosinophils % 5.2 H Basophils % 0.6 Nucleated RBC % 0 PT with INR INR PTT (Actin FS) Sodium 140 Potassium 4.6 Chloride 106 Carbon Dioxide 26 Anion Gap 7 L BUN 19.5 H Creatinine 1.0 Est GFR (CKD-EPI)AfAm 63.38 Est GFR (CKD-EPI)NonAf 54.68 Random Glucose 180 H Calcium 10.6 H Magnesium 1.6 L Total Bilirubin 1.1 H AST 21 ALT 32 Alkaline Phosphatase 65 Total Protein 6.6 Albumin 3.8 Stool Occult Blood Blood Type O NEGATIVE Antibody Screen Negative 01/13/20 01/13/20 17:42 17:42 WBC RBC Hgb Hct MCV MCH MCHC RDW Plt Count MPV Absolute Neuts (auto) Neutrophils % Lymphocytes % Monocytes % Eosinophils % Basophils % Nucleated RBC % PT with INR 12.20 INR 1.03 PTT (Actin FS) 30.7 Sodium Potassium Chloride Carbon Dioxide Anion Gap BUN Creatinine Est GFR (CKD-EPI)AfAm Est GFR (CKD-EPI)NonAf Random Glucose Calcium Magnesium Total Bilirubin AST ALT Alkaline Phosphatase Total Protein Albumin Stool Occult Blood Positive Blood Type Antibody Screen ASSESSMENT/PLAN: 74F w/ pmh of HTN, dyslipidemia, hypothyroidism, COPD(former tobacco), h/o psuedocyst sp Whipple(early ), sp splenectomy, ventral hernia repair, chronic constipation, h/o internal hemorrhoids, h/o diverticulosis, CAD(s/p CABG ~1992, s/p RCA stent([facility], 01/09/20)) presents to [facility]ED with complaint of bloody bowel movements x1d. Symptoms likely related to recent Brillinta(~01/11/20 ) after getting a cardiac stent([facility], [place] [phone]; 01/09/20). ED discussion w/ pt's private Cardio() and [facility] Cardio([facility] service) recommended holding Brillinta and reassessing for possible Prasugrel in the AM. ED discussion w/ GI(Chris) recommended against scope, probable okay for discharge home. NEURO - no active issues PULM # chronic pulmonary nodule # COPD --not in acute excerbation - supplemental O2 PRN to keep >92% CARDIO # CAD(s/p RCA stent([facility], 01/09/20) > EKG(01/14/20): sinus tachy, QTc 453 > troponin 0.06 - Cardio() consult: --HOLD Brillinta --will consider alternative A/C(eg. prasugrel) in the AM GI # GIB --likely self-limiting diverticulosis and recent Brillinta # h/o diverticulosis > FOBT: positive > Hgb: 12.2, 11.2(after LR x2L) > CT A/P(12/10/17): ventral hernia, extensive sigmoid and descending colon - HD stable(nontachy, normotensive) w/ normal mentation - GI(Chris) consult: --likely no scope but formal note is pending - NPO - trend Hgb - monitor for additional BPR RENAL - no active issues > BUN/Cr: 19.5/1.0 ID - no active issues FEN - IVF - NPO DVT PPX - hold chemical DVT for now Dispo: -Doesn't meet criteria for ICU admission. HD stable, no major drop in Hgb -We will continue to follow the patient. Thank you for this consultative opportunity. Visit type - Emergency Visit Emergency Visit: Yes ED Registration Date: 01/13/20 Care time: The patient presented to the Emergency Department on the above date and was hospitalized for further evaluation of their emergent condition. - New Patient This patient is new to me today: Yes Date on this admission: 01/14/20 - Critical Care Critical Care patient: No ATTENDING PHYSICIAN STATEMENT I saw and evaluated the patient. I reviewed the resident's note and discussed the case with the resident. I agree with the resident's findings and plan as documented. SUBJECTIVE: OBJECTIVE: ASSESSMENT AND PLAN:
--- NOTE | 2020-01-13 19:02 | PDOC ---
Documentation entered by Christi Sotomayor SCRIBE, acting as scribe for Lora Dennis MD. Lora Dennis MD: This documentation has been prepared by the davidibe, Christi Sotomayor SCRIBE, under my direction and personally reviewed by me in its entirety. I confirm that the documentation accurately reflects all work, treatment, procedures, and medical decision making performed by me. Attending Attestation - Resident Resident Name: Nishant Lundberg - ED Attending Attestation I have performed the following: I have examined & evaluated the patient, The case was reviewed & discussed with the resident, I agree w/resident's findings & plan, Exceptions are as noted - HPI HPI: 01/13/20 17:33 The patient is a 74-year-old female with a past medical history significant for HTN, HLD, CAD s/p CABG, NIDDM, Hypothyroidism, COPD, Emphysema Who presents to the emergency department with bright red blood per rectum. The patient is s/p cardiac stent on 01/10 at [facility] by Blas Hodge ([phone]), and following the procedure was started on ASA and brilenta. The patient presents 1 day history of bright red blood per rectum, reports she had 3 episodes today. - Physicial Exam PE: 01/13/20 17:42 wnwd 74 yo female p/w BRBPR head ncat neck supple lungs cta b/l cvs [id number] abdomen +LUQ tenderness rectal BRBPR extremities from skin warm and dry neuro axox3 01/13/20 18:24 - Medical Decision Making 01/13/20 17:44 Dr Lundberg did a rectal exam and she has red blood at anal verge and reports clots 01/13/20 18:[address] Regalado (PCP), Dr Lomas (pt's dentofacial orthopedics dentist), Dr. Fung (renewable energy consultant dentofacial orthopedics dentist at [facility] for Dr. Guardado), Dr. Perez (GI renewable energy consultant). 01/13/20 20:41 ADMIT GI bleed
[2020-01-13] MEDS ORDERED: ALBUTEROL SO4 HFA INHALER IH PRN (20:17)
[2020-01-13 21:40] LABS: HEMOGLOBIN 11.2 GM/dL (10.7-15.3); MCH 31.1 pg (25.7-33.7); MCHC 33.1 g/dl (32.0-36.0); MEAN PLT VOLUME 9.5 fl (7.5-11.1); PLATELET COUNT 238 K/MM3 (134-434); RBC 3.61 M/mm3 (3.60-5.2); RDW 13.3 % (11.6-15.6); WHITE BLOOD COUNT 11.1 K/mm3 (4.0-10.0)
[2020-01-13] MEDS ORDERED: ATORVASTATIN CA 10 MG TABLET (FP) PO SCH (22:00)
[2020-01-13] MEDS ORDERED: MOMETASONE FUROATE 220 MCG/IH INHALER IH SCH (22:00)
[2020-01-13] MEDS ORDERED: ATORVASTATIN CA 10 MG TABLET (FP) ONE (23:10)
[2020-01-13 23:42] LABS: PH,URINE 5.5 (5.0-8.0); URINE APPEARANCE CLEAR; URINE BILIRUBIN NEGATIVE (NEGATIVE); URINE COLOR YELLOW; URINE GLUCOSE (UA) NEGATIVE (NEGATIVE); URINE KETONE NEGATIVE (NEGATIVE); URINE PROTEIN NEGATIVE (NEGATIVE)
[2020-01-13 23:43] LABS: URINE LEUK ESTERASE NEGATIVE (NEGATIVE); URINE NITRITE NEGATIVE (NEGATIVE); URINE UROBILINOGEN 0.2 mg/dL (0.2-1.0)
[2020-01-13 23:45] LABS: EPI CELLS 1.4 /HPF (0-5/HPF); HYALINE CASTS 1 /lpf (0-8); URINE BACTERIA 127.7 /hpf (NEGATIVE); URINE RBC 1 /hpf (0-4); URINE WBC 2 /hpf (0-5)
[2020-01-14 02:40] LABS: HEMATOCRIT 32.4 % (32.4-45.2); HEMOGLOBIN 10.8 GM/dL (10.7-15.3); MCH 31.4 pg (25.7-33.7); MCHC 33.4 g/dl (32.0-36.0); MEAN PLT VOLUME 9.7 fl (7.5-11.1); PLATELET COUNT 223 K/MM3 (134-434); RBC 3.45 M/mm3 (3.60-5.2); RDW 13.1 % (11.6-15.6); WHITE BLOOD COUNT 11.9 K/mm3 (4.0-10.0)
[2020-01-14 06:40] LABS: BASO % 0.9 % (0-2.0); EOS % 6.9 % (0-4.5); HEMATOCRIT 33.2 % (32.4-45.2); HEMOGLOBIN 11.3 GM/dL (10.7-15.3); LYMPH % 28.2 % (8-40); MCH 31.7 pg (25.7-33.7); MCHC 34.2 g/dl (32.0-36.0); MEAN CELL VOLUME 92.8 fl (80-96); MEAN PLT VOLUME 9.5 fl (7.5-11.1); MONO % 13.6 % (3.8-10.2); NEUT % 50.4 % (42.8-82.8); PLATELET COUNT 236 K/MM3 (134-434); RBC 3.58 M/mm3 (3.60-5.2); RDW 13.2 % (11.6-15.6); WHITE BLOOD COUNT 10.8 K/mm3 (4.0-10.0)
[2020-01-14] MEDS ORDERED: LEVOTHYROXINE NA 88 MCG TABLET (FP) PO SCH (07:00)
[2020-01-14] MEDS ORDERED: metFORMIN HCL 500 MG TABLET (FP) PO SCH (07:00)
--- NOTE | 2020-01-14 07:08 | HP ---
Admitting History and Physical - Primary Care Physician PCP: Flores Regalado S - Admission Chief Complaint: BRBPR History of Present Illness: The patient is a 74F w/ a history of HTN, HLD, CAD s/p CABG, NIDDM, Hypothyroidism, COPD, s/p stent placement at [facility] 4 days ago RCA on Brilinta and ASA who presents for evaluation of BRBPR. She states she has a bloody BM yesterday and two episodes of passing gross blood and clot afterwards. She reports feeling slightly short of breath since yesterday. Seen in ER - no CP SOB currently but had a couple more small bleeding per rectum over night; Hg slighlty lower no hypoTA no dizziness. She reports the sensation of needing to have a BM but denies abd pain She denies fevers/chills, TREVIÑO, vision changes, dizziness, chest pain, dysuria, hematuria History Source: Patient, Medical Record Limitations to Obtaining History: No Limitations - Past Medical History Cardiovascular: Yes: CAD, HTN, Hyperlipdemia, [place] Pulmonary: Yes: COPD Infectious Disease: Yes: Herpes Zoster Musculoskeletal: Yes: Osteoarthritis Endocrine: Yes: Hypothyroidism - Past Surgical History Past Surgical History: Yes: CABG - Smoking History Smoking history: Never smoked Have you smoked in the past 12 months: No Aproximately how many cigarettes per day: 0 If you are a former smoker, when did you quit?: [place] 1992 - Alcohol/Substance Use Hx Alcohol Use: No History of Substance Use: reports: None - Social History Usual Living Arrangement: Yes: Alone Do you think of yourself as: Straight/Heterosexual ADL: Independent History of Recent Travel: No Home Medications - Allergies Allergies/Adverse Reactions: Allergies Allergy/AdvReac Type Severity Reaction Status Date / Time No Known Allergies Allergy Verified 01/13/20 16:45 - Home Medications Home Medications: Ambulatory Orders Aspirin [Baby Aspirin] 81 mg PO DAILY #0 tab.chew 03/16/12 Levothyroxine [Synthroid -] 88 mcg PO DAILY #0 tablet 03/16/12 Diltiazem Cd [Cardizem Cd -] 120 mg PO BID 09/23/15 Albuterol Sulfate [Proair Respiclick] 90 mcg IH QID PRN #1 aer.pow.ba 01/06/17 Fluticasone Propionate [Flovent Diskus] 50 mcg IH BID #1 blst.w.dev 01/06/17 metFORMIN HCL [Glucophage -] 500 mg PO BID@0700,1630 #60 tablet 01/06/17 Perindopril Erbumine 8 mg PO DAILY 12/10/17 Simvastatin [Zocor] 20 mg PO DAILY 01/29/18 Oxycodone HCl/Acetaminophen [Percocet 5-325 mg Tablet] 1 tab PO Q4H PRN #42 tablet MDD 6 01/30/18 Family Medical History Family History: Unremarkable Review of Systems - Review of Systems Constitutional: denies: Chills, Fever, Lethargy, Loss of Appetite Eyes: denies: Blind Spots, Blurred Vision, Double Vision HENT: denies: Difficult Swallowing, Ear Pain, Epistaxis Neck: denies: Stiffness, Tenderness Cardiovascular: denies: Chest Pain, Palpitations, Shortness of Breath Respiratory: reports: Wheezing (occ). denies: Cough, SOB, SOB on Exertion Gastrointestinal: reports: Constipation, Rectal Bleeding. denies: Abdominal Pain, Bloating, Diarrhea, Dysphagia, Melena, Nausea, Vomiting, Vomiting Blood Genitourinary: denies: Burning, Discharge, Dysuria, Flank Pain, Frequency, Hematuria Musculoskeletal: denies: Back Pain, Joint Swelling Integumentary: reports: Bruising. denies: Change in Color, Eczema, Erythema Neurological: denies: Change in LOC, Change in Speech, Confusion, Dizziness Hematology/Lymphatic: denies: Easily Bruised, Excessive Bleeding Psychiatric: denies: Altered Sleep Pattern, Anxiety, Depression, Suicidal Physical Examination Vital Signs: Vital Signs Temperature 97.7 F 01/13/20 16:41 Pulse Rate 62 01/14/20 06:38 Respiratory Rate 18 01/14/20 06:38 Blood Pressure 117/59 L 01/14/20 06:38 O2 Sat by Pulse Oximetry (%) 96 01/14/20 06:38 Constitutional: Yes: No Distress, Calm Eyes: Yes: Conjunctiva Clear HENT: Yes: Atraumatic Neck: Yes: Supple Cardiovascular: Yes: Regular Rate and Rhythm Respiratory: Yes: CTA Bilaterally Gastrointestinal: Yes: Soft. No: Tenderness Renal/: No: Hematuria Musculoskeletal: No: Joint Stiffness, Joint Swelling Extremities: No: Cold, Cool, Cyanosis, Erythema Edema: No Integumentary: Yes: Bruising (arms). No: Pressure Ulcer, Rash, Venous Stasis Changes Neurological: Yes: WNL, Alert, Oriented ...Motor Strength: WNL Psychiatric: Yes: WNL, Alert, Oriented. No: Agitated, Suicidal Ideation Imaging - Results Chest X-ray: Report Reviewed Cat Scan: Report Reviewed Other: Report Reviewed Assessment/Plan The patient is a 74F w/ a history of HTN, HLD, CAD s/p CABG, NIDDM, Hypothyroidism, COPD, s/p RCA stent placement at [facility] 4 days ago on Brilinta and ASA who presents for evaluation of BRBPR. brilinta held; ASA continued GI and cardio evals; f/u labs transfuse as necessary d/w cardio dr Arechiga - pt to be transferred to [facility] for further GI and cardiology management - d/w pt she agreed cont meds for now; fluid diet prognosis guarded
[2020-01-14 07:20] LABS: ALBUMIN 3.6 g/dl (3.4-5.0); BILIRUBIN,TOTAL 1.5 mg/dL (0.2-1); BLOOD UREA NITROGEN 14.9 mg/dL (7-18); CALCIUM 9.4 mg/dL (8.5-10.1); CREATININE 0.8 mg/dL (0.55-1.3); POTASSIUM 4.4 mmol/L (3.5-5.1); TOT PROT 6.4 g/dl (6.4-8.2)
--- NOTE | 2020-01-14 08:42 | CONS ---
DATE OF CONSULTATION: DATE OF DICTATION: 01/13/2020 CARDIOLOGY CONSULTATION CONSULTATION REQUESTED BY: Emergency room physician. CHIEF COMPLAINT: Painless rectal bleeding. HISTORY OF PRESENT ILLNESS: Patient is a 74-year-old white female with history of coronary artery disease, status post myocardial infarction, status post coronary artery bypass grafting in 1992, recent acute coronary syndrome, status post PCI/stenting (RENETTA) Sunday, history of hypertension, diabetes mellitus, chronic obstructive pulmonary disease, hypercholesterolemia and hypothyroidism. The patient went to the bathroom this morning and states that she initially had normal-colored stools. This was followed by black stools. Then she started to have painless rectal bleeding, followed by blood clots. The symptoms persisted and she was advised to come to the emergency room. Since her admission, she still is experiencing intermittent rectal blood clots. She has some fullness in her abdomen. No abdominal pain has been reported. There is no history of chest pain or discomfort since her discharge from [facility]. There is no history of dyspnea on exertion. The patient denies any paroxysmal nocturnal dyspnea or orthopnea. PAST MEDICAL HISTORY: As mentioned in the history of present illness. PAST SURGICAL HISTORY: 1. Status post tonsillectomy. 2. Status post appendectomy. 3. History of a herniorrhaphy as a child. 4. Status post coronary artery bypass grafting. 5. History of herniorrhaphy and mesh approximately 2 years ago. 6. Status post splenectomy and left adrenalectomy, status post cholecystectomy and pancreatectomy (80%). SOCIAL HISTORY: She is a . 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 She smoked from teenage years until her myocardial infarction in 1992, approximately 1 pack of cigarettes per day. She has a social drink. Drinks a cup of coffee and a couple of cups of tea. No drug use. FAMILY HISTORY: Father at age 70 following an abdominal aortic aneurysm resection. Mother at age 62 related to myasthenia gravis. She had 1 sister, who was a smoker and of carcinoma of the lung. ALLERGIES: None reported. CURRENT MEDICATIONS: 1. Lisinopril 20 mg p.o. daily. 2. Asmanex 1 puff at bedtime. 3. Albuterol inhaler 1 puff q.i.d. p.r.n. 4. Glucophage 500 mg p.o. b.i.d. 5. Diltiazem 120 mg p.o. b.i.d. 6. Atorvastatin 80 mg p.o. daily. 7. Aspirin 81 mg p.o. daily. 8. Synthroid 88 mcg p.o. daily. Prior to admission, the patient was on Brilinta (dose is uncertain) 1 p.o. daily. REVIEW OF SYSTEMS: Constitutional: No history of chills, fever or night sweats. No history of unintentional weight loss. HEENT: No history of headaches, diplopia or blurred vision. History of bilateral cataract extractions and lens implantation. History of surgery on both upper eyelids. No history of epistaxis, hoarseness, tinnitus or deafness reported. Cardiovascular: See history of present illness. Respiratory: History of COPD. Since PCI, she has no further exertional dyspnea. No history of paroxysmal nocturnal dyspnea or orthopnea. No history of tuberculosis. Gastrointestinal: See history of present illness. No history of nausea or vomiting. Neurological: No history of seizures, syncope, focal weakness or dizziness. Endocrine: See history of present illness. Musculoskeletal: History of injury to the left knee, with chronic pain, required Gel injection. No history of myalgias. Hematological: See history of present illness. No known history of anemia. PHYSICAL EXAMINATION: General: A 74-year-old female who was in no acute distress; no pallor, cyanosis , clubbing or jaundice noted. Vital Signs: Blood pressure 118/74 mmHg, pulse 112 beats per minute and regular , temperature 97.7 degrees Fahrenheit, respirations 19 per minute and regular, weight 80.739 kg. Oxygen saturation on room air 99%. Neck: Supple. No jugular venous distention. Carotids were 2+; upstrokes were normal; no bruits were heard. No thyromegaly was present. Heart: No heaves or thrills. S1 and S2 were normal. No murmur or gallops were appreciated Lungs: Clear on auscultation. Chest: Normal AP diameter. Well-healed midline sternotomy scar. Abdomen: Protuberant, soft and nontender. No hepatosplenomegaly or palpable masses were felt. Bowel sounds were heard. No bruits were heard. Extremities: No calf tenderness or dependent edema. Pulses were equal. LABORATORY DATA: ECG is not available. CBC: Hemoglobin on admission was 12.2 g. Repeat at 2124 was 11.2 g. Platelet count was 238,000. Differential at 1700 hours: Neutrophils 52.3%, lymphocytes 29.6%, monocytes 12.3%, eosinophils 5.2%, basophils 0.6%. Chemistry: Sodium 140, potassium 4.6, chloride 106, CO2 of 26 mmol/L, BUN 19.5 mg/dL, creatinine 1.0 mg/dL. Random glucose 100 mg/dL. Calcium 10.6 mg/dL, magnesium 1.6 mg/mL. Repeat total bilirubin 1.1. AST 21, ALT 32, alkaline phosphatase 65 units per liter. Troponin was slightly elevated at 0.20. Total protein 6.6, albumin 3.8. INR was 1.03. PTT was 30.76. X-ray of the chest is not available. IMPRESSION: 1. Painless rectal bleeding, precipitated or aggravated by Brilinta, etiology to be determined. 2. Coronary artery disease, status post myocardial infarction, status post coronary artery bypass grafting, recent percutaneous coronary intervention/stenting (drug-eluting stent) of the right coronary artery. 3. Hypertension, hypertensive cardiovascular disease. 4. Onp-zvdgfuk-jcyuicqjw diabetes mellitus. 5. Hypercholesterolemia. 6. Chronic obstructive pulmonary disease. 7. Hypothyroidism, on replacement therapy. 8. Hypercholesterolemia. RECOMMENDATIONS: 1. Serial CBCs and troponin levels. 2. EKG. 3. X-ray of the chest. 4. GI consultation is pending. 5. Brilinta is to be held tomorrow morning. 6. Type and cross-match. 7. It is possible that the patient will need to be transferred back to [facility]. PROGNOSIS: Guarded. Thank you for your referral. TIME SPENT: 55 minutes. Harjit [id number] [email or web address]
[2020-01-14] MEDS ORDERED: PT OWN MED DRAWER 7, Y5N ONE (09:21)
[2020-01-14] MEDS ORDERED: LISINOPRIL 20 MG TABLET (FP) PO SCH (10:00)
[2020-01-14] MEDS ORDERED: ASPIRIN 81 MG CHEWABLE TABLETS PO SCH (10:00)
[2020-01-14 12:00] VITALS: BP 127/87; PULSE 92; TEMP 98.1
--- NOTE | 2020-01-14 16:44 | EKG ---
Test Reason : Blood Pressure : / mmHG Vent. Rate : 101 BPM Atrial Rate : 101 BPM P-R Int : 188 ms QRS Dur : 072 ms QT Int : 350 ms P-R-T Axes : 069 058 050 degrees QTc Int : 453 ms SINUS TACHYCARDIA ANTEROSEPTAL INFARCT (CITED ON OR BEFORE 19-JUN-2002) ABNORMAL ECG Confirmed by MD LOPEZ GREGORY ([id number]) on 01/14/2020 4:44:10 PM Referred By: Confirmed By:SUGAR LOPEZ MD
--- NOTE | 2020-01-15 09:14 | DS ---
Physical Examination Vital Signs: Vital Signs Temperature 98.1 F 01/14/20 10:00 Pulse Rate 92 H 01/14/20 10:00 Respiratory Rate 18 01/14/20 10:00 Blood Pressure 127/87 01/14/20 10:00 O2 Sat by Pulse Oximetry (%) 96 01/14/20 06:38 Findings/Remarks: see H&P Labs: CBC, BMP 01/14/20 06:01 01/14/20 06:01 Discharge Summary Problems reviewed: Yes Reason For Visit: RECTAL BLEEDING Procedures: Principal: 74 YOF ASHS very recent stent started on brillinta admitted with lower GI Bleed; seen by cardiology; also GI cansult placed; brillinta held per cardio Other Procedures: abd CT no acute pathology Hospital Course: transferred to [facility] per cardiology; pt to f/u GI, PCP and cardiology within 1 week of DC home Condition: Guarded - Instructions Referrals: Flores Regalado [Primary Care Provider] - Disposition: TRANSFER ACUTE CARE/OTHER HOSP - Home Medications Comprehensive Discharge Medication List: Ambulatory Orders Aspirin [Baby Aspirin] 81 mg PO DAILY #0 tab.chew 03/16/12 Levothyroxine [Synthroid -] 88 mcg PO DAILY #0 tablet 03/16/12 Diltiazem Cd [Cardizem Cd -] 120 mg PO BID 09/23/15 Albuterol Sulfate [Proair Respiclick] 90 mcg IH QID PRN #1 aer.pow.ba 01/06/17 Fluticasone Propionate [Flovent Diskus] 50 mcg IH BID #1 blst.w.dev 01/06/17 metFORMIN HCL [Glucophage -] 500 mg PO BID@0700,1630 #60 tablet 01/06/17 Perindopril Erbumine 8 mg PO DAILY 12/10/17 Simvastatin [Zocor] 20 mg PO DAILY 01/29/18 Oxycodone HCl/Acetaminophen [Percocet 5-325 mg Tablet] 1 tab PO Q4H PRN #42 tablet MDD 6 01/30/18
== END 2020-01-14 11:30 | disposition short-term general hospital (02) | DRG 379 ==
LOC: JER 16:36 → JERBED 19:43
PROVIDERS: ADMIT Internal Medicine; ATTEND Internal Medicine
DX: K92.2 Gastrointestinal hemorrhage, unspecified (principal); T50.995A Adverse effect of other drugs, medicaments and biological substances, initial encounter; I10 Essential (primary) hypertension; E78.5 Hyperlipidemia, unspecified; I25.10 Atherosclerotic heart disease of native coronary artery without angina pectoris; J44.9 Chronic obstructive pulmonary disease, unspecified; E11.9 Type 2 diabetes mellitus without complications; E03.9 Hypothyroidism, unspecified; Z95.1 Presence of aortocoronary bypass graft; Z95.5 Presence of coronary angioplasty implant and graft
CPT/HCPCS: 36415; 74177-TC; 80053; 81003; 82272; 83735; 84484; 85025; 85027; 85610; 85730; 86850; 86900; 86901; 93005; 93010; 99285-25; Q9967

== ENCOUNTER → 2022-11-14 | Day surgery (SDC) | payer OTHER ==
[2022-11-07 15:29] VITALS: BMI 27.2
[~2022-11-14] MED LIST: ACETAMINOPHEN 325 MG TABLET (FP) PO PRN; DEXAMETHASONE SOD PHOSPHATE 4 MG/1 ML VIAL ONE; EPINEPHrine/PF 1 MG/1 ML (1:1,000) AMPULE ONE; ERYTHROMYCIN 0.5% OPHTHALMIC OINTMENT 3.5 GM TUBE ONE; FENTANYL CITRATE/PF 50 MCG/ML VIAL ONE; KETOROLAC TROMETHAMINE 30 MG/1 ML VIAL ONE; LIDOCAINE HCL 1%, 10 MG/ML (20ML VIAL) ONE; MIDAZOLAM HCL 2 MG/2 ML SINGLE DOSE VIAL ONE; ONDANSETRON 4 MG/2 ML VIAL IVPUSH PRN; ONDANSETRON 4 MG/2 ML VIAL ONE; POVIDONE-IODINE 5% OPHTHALMIC PREP 30 ML SOLUTION ONE; PROPOFOL 40 ML ONE; SUCCINYLCHOLINE CHLORIDE 200 MG/10 ML SYRINGE ONE; TETRACAINE 0.5% OPHTH SOLN 2 ML BOTTLE ONE; ceFAZolin SODIUM 1 GM VIAL ONE
[2022-11-14 10:31] VITALS: TEMP 97.8
[2022-11-14 11:18] VITALS: BP 134/82; PULSE 78; RESP 16
== END | disposition home or self-care (01) ==
LOC: FASU 06:04
PROVIDERS: ATTEND Ophthalmology
PROC: 08SN0ZZ Reposition Right Upper Eyelid, Open Approach (ICD-10-PCS; 2022-11-14)
PROC: 08SP0ZZ Reposition Left Upper Eyelid, Open Approach (ICD-10-PCS; principal; 2022-11-14 08:11)
DX: H02.423 Myogenic ptosis of bilateral eyelids (principal)
CPT/HCPCS: 82962; 94760